=== PATIENT | female | born 1975 | race Caucasian/White ===

== ENCOUNTER 2019-05-30 01:55 | Inpatient (IN) | payer MEDICAID ==
[2019-05-30] MEDS ORDERED: DIAZEPAM INJ 10 MG/2 ML DISP.SYRIN IV ONE (03:17)
[2019-05-30] MEDS ORDERED: KETOROLAC TROMETHAMINE INJ/PF 30 MG/1 ML SDV IV ONE (03:17)
[2019-05-30] MEDS ORDERED: DEXAMETHASONE SOD PHOS INJ 10 MG/1 ML VIAL IV ONE (03:18)
--- NOTE | 2019-05-30 03:18 | ER Document Report ---
ED General - General Mode of Arrival: Medic Information source: Patient <RUDOLPHSTEPHANIESanjay Sethi - Last Filed: 05/30/19 09:09> <JORGE LUISROBERT - Last Filed: 05/30/19 15:43> - General Chief Complaint: Back Pain Stated Complaint: LOWER LEFT BACK PAIN Time Seen by Provider: 05/30/19 03:07 Notes: Patient is a 44-year-old female presenting to the emergency department chief complaint of low back pain. She is visiting from out of town and called EMS for severe pain to the low back running down the left buttock that started approximately 8 PM. Patient reports she has had back pain before but never anything like this. She states she is having spasms in very sharp pains. EMS gave her a total of 100 mcg of fentanyl which did not alleviate her pain. She denies loss of any bowel or bladder function. Reports no saddle anesthesia. (NESTOR GALDAMEZ) - Related Data Allergies/Adverse Reactions: No Known Allergies Allergy (Unverified 05/30/19 02:22) Past Medical History - General Information source: Patient - Social History Smoking Status: Never Smoker Chew tobacco use (# tins/day): No Frequency of alcohol use: None Drug Abuse: None Family History: Reviewed & Not Pertinent Patient has suicidal ideation: No Patient has homicidal ideation: No - Medical History Medical History: Negative Surgical Hx: Negative - Immunizations Immunizations up to date: Yes <NESTOR GALDAMEZ - Last Filed: 05/30/19 09:09> Review of Systems - Review of Systems Constitutional: No symptoms reported EENT: No symptoms reported Cardiovascular: No symptoms reported Respiratory: No symptoms reported Gastrointestinal: No symptoms reported Genitourinary: No symptoms reported Female Genitourinary: No symptoms reported Musculoskeletal: See HPI Skin: No symptoms reported Hematologic/Lymphatic: No symptoms reported Neurological/Psychological: No symptoms reported <NESTOR GALDAMEZ - Last Filed: 05/30/19 09:09> Physical Exam <NESTOR GALDAMEZ - Last Filed: 05/30/19 09:09> - Vital signs Vitals: Temp Pulse Resp BP Pulse Ox 99.0 F 88 18 143/93 H 100 05/30/19 01:56 05/30/19 01:56 05/30/19 01:56 05/30/19 01:56 05/30/19 01:56 - Notes Notes: PHYSICAL EXAMINATION: GENERAL: Well-appearing, well-nourished and in no moderate distress. HEAD: Atraumatic, normocephalic. EYES: Pupils equal round and reactive to light, extraocular movements intact, c onjunctiva are normal. ENT: Nares patent, oropharynx clear without exudates. Moist mucous membranes. NECK: Normal range of motion, supple without lymphadenopathy LUNGS: Breath sounds clear to auscultation bilaterally and equal. No wheezes rales or rhonchi. HEART: Regular rate and rhythm without murmurs ABDOMEN: Soft, nontender, nondistended abdomen. No guarding, no rebound. No masses appreciated. Female : No CVA tenderness Musculoskeletal: Point tenderness over the vertebral bodies in the lumbar spine, no step-off or deformity noted. Patient also has tenderness with palpation to the left lumbar paraspinous muscles. 5 out of 5 strength in both the distal and proximal upper and lower extremities bilaterally. Sensation is grossly intact throughout. NEUROLOGICAL: Cranial nerves grossly intact. Normal speech. Normal sensory, motor exams PSYCH: Normal mood, normal affect. SKIN: Warm, Dry, normal turgor, no rashes or lesions noted. (NESTOR GALDAMEZ) Course <NESTOR GALDAMEZ - Last Filed: 05/30/19 09:09> - Laboratory Result Diagrams: 05/30/19 09:30 05/30/19 09:30 <ROBERT KANG - Last Filed: 05/30/19 15:43> - Re-evaluation Re-evalutation: Patient appears to be in significant pain at time of arrival. She has no neurological deficits noted on physical exam. She was given IV Toradol, IV Decadron and IV Valium without relief of her pain. She will be sent for a CT of the L-spine. 05/30/19 09:09 Spoke with radiologist, Dr. Ochoa's. 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 Reconsulted with Dr. Kang who recommends obtaining some basic labs including a sed rate and CRP to make sure there is no infectious or inflammatory process going on. Bedside handoff was given to Robert PAINTING. He will follow-up on patient's labs and appropriately disposition patient. (NESTOR GALDAMEZ) 05/30/19 12:41 There was a delay in care trying to reach radiologist for consult on imaging preference. I was able to speak with Dr. Fontaine who recommends MRI with contrast. We will also check UA. 05/30/19 15:42 Patient is an afebrile, well-hydrated, 44-year-old female who presents with discitis/osteomyelitis at L3/L4. Vitals are acceptable without significant tachycardia, tachypnea, hypoxia. PE is otherwise unremarkable. Patient is nontoxic-appearing and is tolerating p.o. without difficulty. We will start her on vancomycin as well as cefepime. I did call for admission and spoke with Dr. Cobos who accepted patient to medical floor. (ROBERT KANG) - Vital Signs Vital signs: Temp Pulse Resp BP Pulse Ox 98.2 F 86 16 121/85 98 05/30/19 14:27 05/30/19 14:27 05/30/19 14:27 05/30/19 14:27 05/30/19 14:27 - Laboratory Laboratory results interpreted by me: 05/30/19 05/30/19 05/30/19 05:11 09:30 09:30 WBC 13.6 H Hgb 11.2 L Hct 33.8 L RDW 14.2 H Lymph % (Auto) 8.2 L [place] % (Auto) 2.5 L Absolute Neuts (auto) 12.1 H Seg Neutrophils % 88.5 H ESR 43 H Chloride 108 H Glucose 155 H AST 45 H Alkaline Phosphatase 189 H C-Reactive Protein 73.6 H Urine Protein 30 H Discharge <NESTOR GALDAMEZ - Last Filed: 05/30/19 09:09> - Discharge Admitting Provider: Papito (Hospitalist) Unit Admitted: Medical Floor <ROBERT KANG - Last Filed: 05/30/19 15:43> - Discharge Clinical Impression: Discitis of lumbar region, Osteomyelitis of vertebra of lumbar region Condition: Stable Disposition: ADMITTED INPATIENT
[2019-05-30] MEDS ORDERED: MORPHINE SULFATE 10 MG/ML INJ IV ONE ×3 (05:14→12:25)
--- NOTE | 2019-05-30 07:21 | RADIOLOGY REPORT (SQ) ---
CLINICAL HISTORY: low back pain COMPARISON: None. 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 FINDINGS: There is no acute fracture. Alignment is anatomic. There is minimal lower lumbar facet arthritis. There is moderate narrowing of most of the lumbar discs with sparing at C4-5. Vertebral body heights are preserved. Soft tissues are unremarkable. IMPRESSION: No acute fracture or subluxation.
[2019-05-30 09:38] LABS: ABSOLUTE BASOPHILS # (AUTO) 0.1 10^3/uL (0.0-0.2); ABSOLUTE LYMPHOCYTES (AUTO) 1.1 10^3/uL (0.5-4.7); ABSOLUTE MONOCYTES (AUTO) 0.3 10^3/uL (0.1-1.4); ABSOLUTE NEUT (AUTO) 12.1 10^3/uL (1.7-8.2); BASOPHILS % (AUTO) 0.7 % (0-2); EOSINOPHILS % (AUTO) 0.1 % (0-6); HEMATOCRIT 33.8 % (36.0-47.0); HEMOGLOBIN 11.2 g/dL (12.0-15.5); LYMPHOCYTES % (AUTO) 8.2 % (13-45); MEAN CORPUSCULAR HEMOGLOBIN 27.3 pg (27.0-33.4); MEAN CORPUSCULAR HGB CONC 33.2 g/dL (32.0-36.0); MEAN CORPUSCULAR VOLUME 82 fl (80-97); MONOCYTES % (AUTO) 2.5 % (3-13); PLATELET COUNT 412 10^3/uL (150-450); RED CELL DISTRIBUTION WIDTH 14.2 % (11.5-14.0); SEGMENTED NEUTROPHILS % (AUTO) 88.5 % (42-78); TOTAL CELLS COUNTED % (AUTO) 100 %; WHITE BLOOD COUNT 13.6 10^3/uL (4.0-10.5)
[2019-05-30 10:10] LABS: ALBUMIN 3.5 g/dL (3.5-5.0); ALKALINE PHOSPHATASE 189 U/L (38-126); ANION GAP 8 (5-19); ASPARTATE AMINO TRANSFERASE 45 U/L (14-36); BILIRUBIN,DIRECT 0.2 mg/dL (0.0-0.4); BILIRUBIN,TOTAL 0.3 mg/dL (0.2-1.3); BLOOD UREA NITROGEN 14 mg/dL (7-20); C-REACTIVE PROTEIN 73.6 mg/L (<10.0); CALCIUM 9.5 mg/dL (8.4-10.2); CARBON DIOXIDE 23 mmol/L (22-30); CHLORIDE 108 mmol/L (98-107); GLUCOSE 155 mg/dL (75-110); POTASSIUM 4.6 mmol/L (3.6-5.0); TOTAL PROTEIN 7.2 g/dL (6.3-8.2)
[2019-05-30 10:15] LABS: ERYTHROCYTE SEDIMENTATION RATE 43 mm/hr (0-20)
[2019-05-30 12:56] LABS: AMORPHOUS SEDIMENT,URINE TRACE /HPF; APPEARANCE,URINE CLOUDY; BILIRUBIN,URINE NEGATIVE (NEGATIVE); COLOR,URINE YELLOW; GLUCOSE, URINE NEGATIVE (NEGATIVE); KETONES,URINE NEGATIVE (NEGATIVE); PROTEIN,URINE 30 mg/dL (NEGATIVE); URINE SPECIFIC GRAVITY 1.021; UROBILINOGEN,URINE NEGATIVE mg/dL (<2.0)
[2019-05-30] MEDS ORDERED: LORAZEPAM INJ 2 MG/1 ML VIAL IV ONE (13:20)
--- NOTE | 2019-05-30 15:15 | RADIOLOGY REPORT (SQ) ---
EXAM DESCRIPTION: MRI LUMBAR SPINE COMBO COMPLETED DATE/TIME: 05/30/2019 2:16 pm REASON FOR STUDY: LBP, elevated WBC, ESR, CRP COMPARISON: CT 05/30/2019 TECHNIQUE: Sagittal and Axial imaging includes T1, T1 post gadolinium, T2, STIR and gradient echo se quences. Coronal T2/HASTE imaging. CONTRAST TYPE AND DOSE: 10 mL Dotarem. RENAL FUNCTION: Not indicated. ACR Type II contrast agent associated with few, if any, unconfounded cases of NSF LIMITATIONS: None. FINDINGS: VISUALIZED UPPER ABDOMEN: Limited evaluation. No acute or suspicious findings suggested. SEGMENTATION: No transitional anatomy. The lowest well-developed disc space is labeled L5-S1. ALIGNMENT: Slight reversal of the normal lordotic curvature is seen at the L3/4 level. VERTEBRAE: Intact. No fractures. BONE MARROW: Enhancing edema is seen involving the L3/L4 apposing endplates. Mild enhancing marrow e meghana is seen of the L5-S1 level. Marrow signal is otherwise normal. DISC SIGNAL: Extrusion results in severe right POSTERIOR ELEMENTS: Generally intact. No pars defect evident. HARDWARE: None in the spine. CORD AND CONUS: Normal in size and signal intensity. Conus at the appropriate level. SOFT TISSUES: No aortic aneurysm seen. No bulky retroperitoneal adenopathy or mass. No paraspinal mas s or fluid. L1-L2: Right foraminal zone disc bulge results an severe right neural foraminal narrowing. The centr al canal and left neural foramen remain patent. L2-L3: Right foraminal zone disc bulge results in mild right neural foraminal narrowing. The central canal and left neural foramen remain widely patent. L3-L4: Left foraminal zone disc extrusion results in severe left neural foraminal narrowing. There i s mild central canal and right neural foraminal narrowing as well. L4-L5: Broad-based posterior disc bulge results in moderate bilateral neural foraminal narrowing. L5-S1: Posterior disc bulge the effaces the ventral CSF signal and results moderate bilateral neural foraminal narrowing. LOWER THORACIC: Incompletely imaged. No stenosis seen. SACRUM: Visualized upper sacrum intact. ENHANCEMENT: No abnormal enhancement. OTHER: No other significant findings. IMPRESSION: Constellation of findings consistent with discitis/osteomyelitis at the L3/4 level. Thi s is superimposed upon multilevel spondylotic changes as detailed above. TECHNICAL DOCUMENTATION: JOB ID: [id number]- All Rights Reserved Reading location - IP/workstation name: [email or web address]
[2019-05-30] MEDS ORDERED: CEFEPIME 2 GM/D5W RTU 2 GM/50 ML RTUPB IV ONE (15:36)
[2019-05-30] MEDS ORDERED: ACETAMINOPHEN 325 MG TABLET PO PRN (16:16)
[2019-05-30] MEDS ORDERED: MAG HYDROX/AL HYDROX/SIMETH SUSP 30 ML UDCUP PO PRN (16:16)
[2019-05-30] MEDS ORDERED: ONDANSETRON HCL INJ/PF 4 MG/2 ML SDV IV PRN (16:16)
[2019-05-30] MEDS ORDERED: KETOROLAC TROMETHAMINE INJ/PF 30 MG/1 ML SDV IV PRN (16:23)
[2019-05-30 16:49] LABS: URINE AMPHETAMINES SCREEN NEGATIVE; URINE BARBITURATES SCREEN NEGATIVE; URINE BENZODIAZEPINES SCREEN NEGATIVE; URINE COCAINE SCREEN NEGATIVE; URINE MARIJUANA (THC) SCREEN NEGATIVE; URINE METHADONE SCREEN NEGATIVE; URINE PHENCYCLIDINE SCREEN NEGATIVE
[2019-05-30] MEDS: OXYCODONE HCL IR 5 MG TABLET PO PRN (16:55)
--- NOTE | 2019-05-30 16:56 | PDOC H&P ---
History of Present Illness Admission Date/PCP: 05/30/19 16:00 Patient complains of: Back pain History of Present Illness: BRENDEN SURESH is a 44 year old female with a history of migraines and anxiety, who presents to the hospital with complaints of lower back pain involving the middle and left side. Pain started yesterday and is described as a sharp pain without further radiation. Got as bad as a 5/5. Exacerbated by certain motions of her spine and relieved usually just lays steady on the left side. Denies any fever or chills. Acknowledge feeling some weakness in her left leg. Denies any saddle anesthesia, bowel or bladder incontinence, paresthesias in her lower extremities. Denies any cuts or wounds to the body. 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 Last used in November 2018. Denies IV use. Drugs: Marijuana Hx Prescription Drug Abuse: No - Advance Directive Resuscitation Status: Full Code Family History Family History: DM, Other - Colorectal cancer in her twin sister Parental Family History Reviewed: Yes Children Family History Reviewed: NA Sibling(s) Family History Reviewed.: Yes Medication/Allergy Home Medications: No Home Medications 05/30/19 Allergies/Adverse Reactions: No Known Allergies Allergy (Unverified 05/30/19 02:22) Review of Systems Constitutional: PRESENT: headache(s). ABSENT: chills, fever(s) Eyes: ABSENT: visual disturbances Nose, Mouth, and Throat: PRESENT: headache(s). ABSENT: mouth pain Cardiovascular: ABSENT: chest pain Respiratory: ABSENT: cough, dyspnea Gastrointestinal: ABSENT: abdominal pain, diarrhea, nausea, vomiting Genitourinary: ABSENT: dysuria Musculoskeletal: ABSENT: joint swelling Integumentary: ABSENT: diaphoresis Neurological: ABSENT: confusion, dizziness, numbness, paresthesias, tingling, tremor(s) Psychiatric: PRESENT: anxiety Endocrine: ABSENT: polyuria Physical Exam Vital Signs: Temp Pulse Resp BP Pulse Ox 98.2 F 86 16 121/85 98 05/30/19 14:27 05/30/19 14:27 05/30/19 14:27 05/30/19 14:27 05/30/19 14:27 Intake & Output 05/29/19 05/30/19 05/31/19 06:59 06:59 06:59 Weight 64.8 kg General appearance: PRESENT: no acute distress, cooperative Head exam: PRESENT: normocephalic Eye exam: PRESENT: EOMI Neck exam: ABSENT: JVD Respiratory exam: PRESENT: clear to auscultation basil, symmetrical, unlabored. ABSENT: crackles, rales, rhonchi, tachypnea, wheezes Cardiovascular exam: PRESENT: RRR, +S1, +S2. ABSENT: diastolic murmur, systolic murmur GI/Abdominal exam: PRESENT: normal bowel sounds, soft. ABSENT: firm, guarding, rebound, rigid, tenderness Extremities exam: ABSENT: pedal edema Musculoskeletal exam: PRESENT: full ROM, tenderness - In mid lower and left lower back. ABSENT: deformity Neurological exam: PRESENT: motor sensory deficit - Right lower extremity 5/5 strength, LLE 4-5/5 strength (very mildly weaker than right leg) Results Laboratory Results: 05/30/19 09:30 05/30/19 09:30 05/30/19 05/30/19 05/30/19 05:11 09:30 09:30 WBC 13.6 H RBC 4.10 Hgb 11.2 L Hct 33.8 L MCV 82 MCH 27.3 MCHC 33.2 RDW 14.2 H Plt Count 412 Seg Neutrophils % 88.5 H Sodium 138.8 Potassium 4.6 Chloride 108 H Carbon Dioxide 23 Anion Gap 8 BUN 14 Creatinine 0.62 Est GFR ( Amer) > 60 Glucose 155 H Calcium 9.5 Total Bilirubin 0.3 AST 45 H Alkaline Phosphatase 189 H C-Reactive Protein 73.6 H Total Protein 7.2 Albumin 3.5 Urine Color YELLOW Urine Appearance CLOUDY Urine pH 7.0 Ur Specific [place] 1.021 Urine Protein 30 H Urine Glucose (UA) NEGATIVE Urine Ketones NEGATIVE Urine Blood NEGATIVE Urine RBC (Auto) 1 Impressions: Lumbar Spine CT 05/30/19 05:13 IMPRESSION: No acute fracture or subluxation. Lumbar Spine MRI 05/30/19 12:43 IMPRESSION: Constellation of findings consistent with discitis/osteomyelitis at the L3/4 level. This is superimposed upon multilevel spondylotic changes as detailed above. Assessment and Plan - Diagnosis (1) Osteomyelitis of vertebra of lumbar region Is this a current diagnosis for this admission?: Yes Plan: -MRI confirming osteomyelitis and discitis of L3/4 vertebra endplates. Elevated ESR and CRP. -I discussed with IR to see if a bone biopsy would be possible tomorrow or today prior to starting antibiotics. However due to staffing limitations, I was informed that it will not be possible to obtain a bone biopsy till very earliest time being Sunday if even that. -As such, I will proceed with IV antibiotics with vancomycin and ceftriaxone and forego pursuing bone biopsy. Patient will need at least 6 weeks of antibiotics. -Follow-up blood cultures -s/p dexamethasone in the ER -Pain control with Tylenol, Toradol and oxycodone based on pain scale. -Bedrest -Back brace if needed (2) Discitis of lumbar region Is this a current diagnosis for this admission?: Yes Plan: Plan as above (3) Migraine headache Qualifiers: Migraine type: unspecified Status migrainosus presence: without status migrainosus Intractability: not intractable Qualified Code(s): G43.909 - Migraine, unspecified, not intractable, without status migrainosus Is this a current diagnosis for this admission?: Yes Plan: Chronic Pain control as needed - Time Time Spent with patient: 35 or more minutes
[2019-05-30] MEDS: VANCOMYCIN HCL INJ 1000 MG VIAL IV ONE ×2 (18:05→18:20)
[2019-05-30] MEDS: KETOROLAC TROMETHAMINE INJ/PF 30 MG/1 ML SDV IV PRN (18:26)
[2019-05-30] MEDS ORDERED: INFLUENZA QUAD (6MOS+) 2019-20 VAC 0.5 ML SYR IM ONE (18:29)
[2019-05-31] MEDS: KETOROLAC TROMETHAMINE INJ/PF 30 MG/1 ML SDV IV PRN ×4 (00:38→23:22)
[2019-05-31] MEDS: OXYCODONE HCL IR 5 MG TABLET PO PRN (01:38)
[2019-05-31] MEDS: VANCOMYCIN HCL 750 MG in DEXTROSE 5%-WATER 250 ML IV SCH ×3 (02:18→17:20)
[2019-05-31] MEDS: MORPHINE SULFATE 10 MG/ML INJ IV PRN ×5 (02:40→21:48)
[2019-05-31 05:01] LABS: ABSOLUTE LYMPHOCYTES (AUTO) 2.2 10^3/uL (0.5-4.7); ABSOLUTE NEUT (AUTO) 12.6 10^3/uL (1.7-8.2); BASOPHILS % (AUTO) 0.3 % (0-2); EOSINOPHILS % (AUTO) 0.2 % (0-6); LYMPHOCYTES % (AUTO) 14.1 % (13-45); MEAN CORPUSCULAR HEMOGLOBIN 27.1 pg (27.0-33.4); MEAN CORPUSCULAR HGB CONC 33.2 g/dL (32.0-36.0); MEAN CORPUSCULAR VOLUME 82 fl (80-97); MONOCYTES % (AUTO) 6.2 % (3-13); PLATELET COUNT 459 10^3/uL (150-450); RED BLOOD COUNT 3.68 10^6/uL (3.72-5.28); RED CELL DISTRIBUTION WIDTH 14.2 % (11.5-14.0); SEGMENTED NEUTROPHILS % (AUTO) 79.2 % (42-78); TOTAL CELLS COUNTED % (AUTO) 100 %; WHITE BLOOD COUNT 15.9 10^3/uL (4.0-10.5)
[2019-05-31 05:16] LABS: ANION GAP 12 (5-19); BLOOD UREA NITROGEN 21 mg/dL (7-20); CALCIUM 9.4 mg/dL (8.4-10.2); CARBON DIOXIDE 20 mmol/L (22-30); CHLORIDE 106 mmol/L (98-107); GLUCOSE 207 mg/dL (75-110); POTASSIUM 3.9 mmol/L (3.6-5.0)
[2019-05-31] MEDS: ENOXAPARIN SODIUM INJ 40 MG/0.4 ML DISP.SYRIN SUBCUT SCH (09:14)
[2019-05-31] MEDS ORDERED: CEFTRIAXONE 2 GM/D5W RTU 2 GM/50 ML RTUPB IV SCH (10:00)
[2019-05-31] MEDS ORDERED: VANCOMYCIN HCL INJ 500 MG VIAL IV SCH (10:00)
--- NOTE | 2019-05-31 11:07 | PDOC PROGRESS REPORT ---
Subjective Progress Note for:: 05/31/19 Subjective:: Patient still experiencing some back pain today. States that the Toradol helped modestly but occasionally might need something even stronger. Does not have much request today. Reason For Visit: VERTEBRAL OSTEOMYELITIS Physical Exam Vital Signs: Temp Pulse Resp BP Pulse Ox 98.1 F 83 15 132/79 H 100 05/31/19 08:00 05/31/19 08:00 05/31/19 08:00 05/31/19 08:00 05/31/19 08:00 Intake & Output 05/30/19 05/31/19 06/01/19 06:59 06:59 06:59 Intake Total 650 Balance 650 Weight 64.8 kg 64.5 kg General appearance: PRESENT: no acute distress, cooperative Neck exam: ABSENT: JVD Respiratory exam: PRESENT: clear to auscultation basil, symmetrical, unlabored. ABSENT: tachypnea, wheezes Cardiovascular exam: PRESENT: RRR, +S1, +S2. ABSENT: diastolic murmur, systolic murmur, tachycardia GI/Abdominal exam: PRESENT: normal bowel sounds. ABSENT: ascites, distended, firm, guarding, rebound, rigid, soft, tenderness Musculoskeletal exam: PRESENT: other - Tenderness in lower mid and left lower back. Worsens with left hip flexion against resistance. Neurological exam: PRESENT: alert, awake, oriented to person, oriented to place, oriented to time, oriented to situation, other - RLE 5/5 flexion at the hip 5/5 distally, LLE 4-5/5 proximally at the hip, 5/5 distally Psychiatric exam: ABSENT: agitated, anxious Results Laboratory Results: 05/31/19 04:06 05/31/19 04:06 05/30/19 05/31/19 05/31/19 05:11 04:06 04:06 WBC 15.9 H RBC 3.68 L Hgb 10.0 L Hct 30.0 L MCV 82 MCH 27.1 MCHC 33.2 RDW 14.2 H Plt Count 459 H Seg Neutrophils % 79.2 H Sodium 137.5 Potassium 3.9 Chloride 106 Carbon Dioxide 20 L Anion Gap 12 BUN 21 H Creatinine 0.66 Est GFR ( Amer) > 60 Glucose 207 H Calcium 9.4 Magnesium 2.0 Urine Color YELLOW Urine Appearance CLOUDY Urine pH 7.0 Ur Specific [place] 1.021 Urine Protein 30 H Urine Glucose (UA) NEGATIVE Urine Ketones NEGATIVE Urine Blood NEGATIVE Urine RBC (Auto) 1 05/30/19 16:10 Blood Blood Culture (PCR) - Final Streptococcus Species Impressions: Lumbar Spine CT 05/30/19 05:13 IMPRESSION: No acute fracture or subluxation. Lumbar Spine MRI 05/30/19 12:43 IMPRESSION: Constellation of findings consistent with discitis/osteomyelitis at the L3/4 level. This is superimposed upon multilevel spondylotic changes as detailed above. Assessment and Plan - Diagnosis (1) Osteomyelitis of vertebra of lumbar region Is this a current diagnosis for this admission?: Yes Plan: -MRI confirming osteomyelitis and discitis of L3/4 vertebra endplates. Elevated ESR and CRP. Secondary to hematogenous seeding. However primary source is unclear. -Bone biopsy was not possible on admission after discussion with IR until very earliest Sunday. We will forego bone biopsy at this point. -Blood cultures now positive for Streptococcus species -Continue vancomycin and ceftriaxone pending susceptibility report. Patient will need antibiotics for at least 6 weeks. -s/p dexamethasone in the ER --> likely responsible for the bump in WBC count today -Pain control with Tylenol, Toradol and morphine based on pain scale. -Bedrest -Was unable to get a back brace for patient. Use a K pad for now. (2) Discitis of lumbar region Is this a current diagnosis for this admission?: Yes Plan: Plan as above (3) Streptococcal bacteremia Is this a current diagnosis for this admission?: Yes Plan: -Repeat blood cultures ordered for tomorrow morning. -Continue antibiotics as stated problem #1 (4) Migraine headache Qualifiers: Migraine type: unspecified Status migrainosus presence: without status migrainosus Intractability: not intractable Qualified Code(s): G43.909 - Migraine, unspecified, not intractable, without status migrainosus Is this a current diagnosis for this admission?: Yes Plan: Chronic Pain control as needed - Time Time Spent with patient: Less than 15 minutes
[2019-05-31] MEDS: CEFTRIAXONE 2 GM/D5W RTU 2 GM/50 ML RTUPB IV SCH (13:07)
[2019-05-31] MEDS: CYCLOBENZAPRINE HCL 10 MG TABLET PO PRN (16:41)
[2019-05-31 17:41] LABS: VANCOMYCIN,TROUGH 14.2 ug/mL (5.0-20.0)
[2019-06-01] MEDS: CYCLOBENZAPRINE HCL 10 MG TABLET PO PRN ×3 (00:12→18:43)
[2019-06-01] MEDS: MORPHINE SULFATE 10 MG/ML INJ IV PRN ×4 (01:04→19:36)
[2019-06-01] MEDS: VANCOMYCIN HCL 750 MG in DEXTROSE 5%-WATER 250 ML IV SCH ×3 (01:05→18:01)
[2019-06-01 06:40] LABS: ABSOLUTE BASOPHILS # (AUTO) 0.1 10^3/uL (0.0-0.2); ABSOLUTE EOSINOPHILS # (AUTO) 0.1 10^3/uL (0.0-0.6); ABSOLUTE LYMPHOCYTES (AUTO) 2.7 10^3/uL (0.5-4.7); ABSOLUTE MONOCYTES (AUTO) 0.8 10^3/uL (0.1-1.4); ABSOLUTE NEUT (AUTO) 6.2 10^3/uL (1.7-8.2); BASOPHILS % (AUTO) 1.1 % (0-2); EOSINOPHILS % (AUTO) 1.2 % (0-6); HEMATOCRIT 31.4 % (36.0-47.0); HEMOGLOBIN 10.8 g/dL (12.0-15.5); LYMPHOCYTES % (AUTO) 27.3 % (13-45); MEAN CORPUSCULAR HEMOGLOBIN 27.7 pg (27.0-33.4); MEAN CORPUSCULAR HGB CONC 34.3 g/dL (32.0-36.0); MEAN CORPUSCULAR VOLUME 81 fl (80-97); MONOCYTES % (AUTO) 7.7 % (3-13); PLATELET COUNT 490 10^3/uL (150-450); RED BLOOD COUNT 3.89 10^6/uL (3.72-5.28); RED CELL DISTRIBUTION WIDTH 14.3 % (11.5-14.0); SEGMENTED NEUTROPHILS % (AUTO) 62.7 % (42-78); TOTAL CELLS COUNTED % (AUTO) 100 %; WHITE BLOOD COUNT 9.9 10^3/uL (4.0-10.5)
[2019-06-01 07:03] LABS: ANION GAP 10 (5-19); BLOOD UREA NITROGEN 20 mg/dL (7-20); CALCIUM 9.1 mg/dL (8.4-10.2); CARBON DIOXIDE 21 mmol/L (22-30); CHLORIDE 108 mmol/L (98-107); GLUCOSE 115 mg/dL (75-110); POTASSIUM 4.4 mmol/L (3.6-5.0)
[2019-06-01] MEDS: KETOROLAC TROMETHAMINE INJ/PF 30 MG/1 ML SDV IV PRN ×2 (09:20→18:43)
[2019-06-01] MEDS: ENOXAPARIN SODIUM INJ 40 MG/0.4 ML DISP.SYRIN SUBCUT SCH ×2 (09:20→10:07)
--- NOTE | 2019-06-01 10:21 | PDOC PROGRESS REPORT ---
Subjective Progress Note for:: 06/01/19 Subjective:: Clearly in pain. She is Grimicing and restless. The pain rediates to left leg. To the thigh mostly. The left leg feels week. Reason For Visit: VERTEBRAL OSTEOMYELITIS Physical Exam Vital Signs: Temp Pulse Resp BP Pulse Ox 98.0 F 80 16 134/80 H 99 06/01/19 07:35 06/01/19 07:35 06/01/19 07:35 06/01/19 07:35 06/01/19 07:35 Intake & Output 05/31/19 06/01/19 06/02/19 06:59 06:59 06:59 Intake Total 650 1778 Balance 650 1778 Weight 64.5 kg 66.5 kg General appearance: PRESENT: cooperative, mild distress - moderate distress, well-developed Head exam: PRESENT: atraumatic, normocephalic Eye exam: PRESENT: conjunctiva pale. ABSENT: scleral icterus Ear exam: PRESENT: normal external ear exam. ABSENT: bleeding, drainage Mouth exam: PRESENT: moist, tongue midline Teeth exam: PRESENT: dental caries - several teeth droken at the gums, poor dentation, other - Gingivitis and gum discoloration, Halitosis Neck exam: ABSENT: carotid bruit, JVD, lymphadenopathy Respiratory exam: PRESENT: clear to auscultation basil, symmetrical, wheezes. ABSENT: accessory muscle use, rales, rhonchi, tachypnea, unlabored Cardiovascular exam: PRESENT: RRR, +S1, +S2, systolic murmur - 1/6 GI/Abdominal exam: PRESENT: soft. ABSENT: distended, guarding, tenderness Rectal exam: PRESENT: deferred Extremities exam: ABSENT: joint swelling, pedal edema Musculoskeletal exam: PRESENT: ambulatory - poor gait secondary to pain Neurological exam: PRESENT: alert, awake, oriented to person, oriented to place, oriented to time, oriented to situation, reflexes normal - Patellar 2+ bilaterally, CN II-XII grossly intact Psychiatric exam: PRESENT: appropriate affect - grimacing affect reflects pain. ABSENT: agitated, anxious Focused psych exam: PRESENT: restlessness - Cannot seem to get in a comfortable position.. ABSENT: delusional Skin exam: PRESENT: dry, normal color, warm. ABSENT: erythema, rash Results Laboratory Results: 06/01/19 05:48 06/01/19 05:48 06/01/19 06/01/19 05:48 05:48 WBC 9.9 RBC 3.89 Hgb 10.8 L Hct 31.4 L MCV 81 MCH 27.7 MCHC 34.3 RDW 14.3 H Plt Count 490 H Seg Neutrophils % 62.7 Sodium 138.7 Potassium 4.4 Chloride 108 H Carbon Dioxide 21 L Anion Gap 10 BUN 20 Creatinine 0.60 Est GFR ( Amer) > 60 Glucose 115 H Calcium 9.1 05/30/19 16:10 Blood Blood Culture (PCR) - Final Streptococcus Species Impressions: Lumbar Spine CT 05/30/19 05:13 IMPRESSION: No acute fracture or subluxation. Lumbar Spine MRI 05/30/19 12:43 IMPRESSION: Constellation of findings consistent with discitis/osteomyelitis at the L3/4 level. This is superimposed upon multilevel spondylotic changes as detailed above. Assessment and Plan - Diagnosis (1) Discitis of lumbar region Is this a current diagnosis for this admission?: Yes Plan: 06/01/2019-identification and sensitivities are pending. Clearly it is from her bad teeth. Multiple teeth are broken off at the gumline and there are many caries. I told her that she can expect 6 weeks of antibiotics. Once the PICC line is in place we will arrange for home antibiotic therapy. (2) Osteomyelitis of vertebra of lumbar region Is this a current diagnosis for this admission?: Yes Plan: 06/01/2019-the plan is as above. I have ordered a JOSÉ to rule out any endocarditis. I will also monitor the CRP/ESR as this should normalize with pro longed antibiotic therapy. (3) Streptococcal bacteremia Is this a current diagnosis for this admission?: Yes Plan: 06/01/2019-awaiting final identification and sensitivities. As soon as they are available I will narrow the spectrum of antibiotics. The vancomycin is very irritating to her veins. (4) Neutrophilic leukocytosis Is this a current diagnosis for this admission?: Yes Plan: 06/01/2019-the white blood cell count was elevated due to the osteomyelitis/d iscitis. With antibiotics it is now normal. (5) Migraine headache Qualifiers: Migraine type: unspecified Status migrainosus presence: without status migrainosus Intractability: not intractable Qualified Code(s): G43.909 - Migraine, unspecified, not intractable, without status migrainosus Is this a current diagnosis for this admission?: Yes Plan: 06/01/2019-symptomatic management at this time. (6) Lumbar disc disease with radiculopathy Is this a current diagnosis for this admission?: Yes Plan: 06/01/2019-after reviewing the MRI report she has bulging disks at multiple levels. There is significant foraminal encroachment bilaterally. I explained that she will need to at least consult with a neurosurgeon but this will only be after her antibiotic therapy is completed. The pain is radiating to her left leg. Her patellar reflexes were normal and she can lift her left leg off the bed on command. The plantar and dorsiflexion strength is symmetric. I believe her perceived weakness in that leg is more from pain. (7) Low back pain due to displacement of intervertebral disc Is this a current diagnosis for this admission?: Yes Plan: 06/01/2019-as noted above she has bulging disks that multiple levels. This is contributing to her back pain. The discitis/osteomyelitis is only made it worse. Symptomatic management at this time. Because of the multilevel disc disease I am going to give a single dose of Decadron to see if this gives her relief. I explained to her that we have to be very careful that we do not suppress the immune system with the underlying infection. She is also on Toradol as an anti-inflammatory. (8) Primary active dental caries extending into pulp Is this a current diagnosis for this admission?: Yes Plan: 06/01/2019-the patient has several molars broken off at the gumline in the left lower jaw. There are severe caries in the right molars as well. There is swelling of the gums and some discoloration. I did not observe any purulent drainage. This is most likely the cause of her osteomyelitis/discitis. I explained to her that she will need significant work and likely have multiple teeth pulled. I will strongly urged her to consult an moving picture producer/clerical supervisor. I will defer to them but it may be best to have dental work while she is on the antibiotic therapy. - Time Time Spent with patient: 15-24 minutes Medications reviewed and adjusted accordingly: Yes Anticipated discharge: Home - Home with IV antibiotics.
[2019-06-01] MEDS ORDERED: DEXAMETHASONE SOD PHOSPHATE INJ 4 MG/1 ML VIAL IV ONE (10:30)
[2019-06-01] MEDS: LIDOCAINE 5% (700 MG) TRANSDERMAL ADH..PATCH TP SCH (11:12)
[2019-06-01] MEDS: NORMAL SALINE 1000 ML 1,000 ML IV PRN (11:12)
[2019-06-01] MEDS: CEFTRIAXONE 2 GM/D5W RTU 2 GM/50 ML RTUPB IV SCH (14:36)
[2019-06-01] MEDS: CHLORHEXIDINE GLUCONATE 0.12% ORAL RINSE 15 ML UDC MM SCH (18:01)
[2019-06-02] MEDS: ACETAMINOPHEN 325 MG TABLET PO PRN (00:12)
[2019-06-02] MEDS: KETOROLAC TROMETHAMINE INJ/PF 30 MG/1 ML SDV IV PRN ×4 (01:11→23:55)
[2019-06-02] MEDS: VANCOMYCIN HCL 750 MG in DEXTROSE 5%-WATER 250 ML IV SCH ×2 (01:11→10:07)
[2019-06-02] MEDS: MORPHINE SULFATE 10 MG/ML INJ IV PRN ×3 (02:50→18:52)
[2019-06-02 04:15] LABS: ABSOLUTE BASOPHILS # (AUTO) 0.1 10^3/uL (0.0-0.2); ABSOLUTE LYMPHOCYTES (AUTO) 2.4 10^3/uL (0.5-4.7); ABSOLUTE MONOCYTES (AUTO) 1.1 10^3/uL (0.1-1.4); ABSOLUTE NEUT (AUTO) 14.5 10^3/uL (1.7-8.2); BASOPHILS % (AUTO) 0.7 % (0-2); HEMATOCRIT 32.1 % (36.0-47.0); HEMOGLOBIN 10.8 g/dL (12.0-15.5); LYMPHOCYTES % (AUTO) 13.1 % (13-45); MEAN CORPUSCULAR HEMOGLOBIN 27.1 pg (27.0-33.4); MEAN CORPUSCULAR HGB CONC 33.6 g/dL (32.0-36.0); MEAN CORPUSCULAR VOLUME 81 fl (80-97); MONOCYTES % (AUTO) 6.2 % (3-13); PLATELET COUNT 557 10^3/uL (150-450); RED BLOOD COUNT 3.98 10^6/uL (3.72-5.28); RED CELL DISTRIBUTION WIDTH 14.3 % (11.5-14.0); TOTAL CELLS COUNTED % (AUTO) 100 %; WHITE BLOOD COUNT 18.1 10^3/uL (4.0-10.5)
[2019-06-02 04:20] LABS: INTERNATIONAL RATION (INR) 1.01; PROTHROMBIN TIME 13.3 SEC (11.4-15.4)
[2019-06-02 04:21] LABS: PARTIAL THROMBOPLASTIN TIME 28.9 SEC (23.5-35.8)
[2019-06-02 04:37] LABS: ANION GAP 10 (5-19); BLOOD UREA NITROGEN 17 mg/dL (7-20); CALCIUM 9.7 mg/dL (8.4-10.2); CARBON DIOXIDE 21 mmol/L (22-30); CHLORIDE 108 mmol/L (98-107); GLUCOSE 183 mg/dL (75-110)
[2019-06-02] MEDS: CYCLOBENZAPRINE HCL 10 MG TABLET PO PRN ×2 (07:59→17:31)
[2019-06-02] MEDS: LIDOCAINE 5% (700 MG) TRANSDERMAL ADH..PATCH TP SCH (10:03)
[2019-06-02] MEDS: CHLORHEXIDINE GLUCONATE 0.12% ORAL RINSE 15 ML UDC MM SCH ×2 (10:03→17:33)
--- NOTE | 2019-06-02 10:30 | PDOC PROGRESS REPORT ---
Subjective Progress Note for:: 06/02/19 Subjective:: Patient admits to history of IV drug use. She has not used in 2 months. Her sister and both within the last year and she has been extremely depressed. The mouth is still the most likely etiology as the bacteria identified is strep mitis. Reason For Visit: VERTEBRAL OSTEOMYELITIS Physical Exam Vital Signs: Temp Pulse Resp BP Pulse Ox 97.9 F 75 16 141/84 H 100 06/02/19 07:40 06/02/19 07:40 06/02/19 07:40 06/02/19 07:40 06/02/19 07:40 Intake & Output 06/01/19 06/02/19 06/03/19 06:59 06:59 06:59 Intake Total 1778 1160 Balance 1778 1160 Weight 66.5 kg 62.4 kg General appearance: PRESENT: no acute distress, cooperative, well-developed Head exam: PRESENT: atraumatic, normocephalic Eye exam: PRESENT: conjunctiva pink. ABSENT: scleral icterus Ear exam: PRESENT: normal external ear exam. ABSENT: bleeding, drainage Mouth exam: PRESENT: moist, tongue midline Neck exam: PRESENT: full ROM. ABSENT: carotid bruit, JVD Respiratory exam: PRESENT: clear to auscultation basil, rales, symmetrical, unlabored. ABSENT: accessory muscle use, rhonchi, tachypnea, wheezes Cardiovascular exam: PRESENT: RRR, +S1, +S2, systolic murmur - 2/6 GI/Abdominal exam: PRESENT: normal bowel sounds, soft. ABSENT: distended, tenderness Rectal exam: PRESENT: deferred Extremities exam: PRESENT: full ROM. ABSENT: joint swelling, pedal edema Musculoskeletal exam: PRESENT: full ROM, normal inspection. ABSENT: deformity Neurological exam: PRESENT: alert, awake, oriented to person, oriented to place, oriented to time, oriented to situation, CN II-XII grossly intact Psychiatric exam: PRESENT: depressed, flat affect. ABSENT: agitated, anxious Focused psych exam: ABSENT: delusional, restlessness Skin exam: PRESENT: dry, normal color, warm. ABSENT: rash Results Laboratory Results: 06/02/19 04:06 06/02/19 04:06 06/02/19 06/02/19 04:06 04:06 WBC 18.1 H RBC 3.98 Hgb 10.8 L Hct 32.1 L MCV 81 MCH 27.1 MCHC 33.6 RDW 14.3 H Plt Count 557 H Seg Neutrophils % 80.0 H Sodium 139.4 Potassium 4.0 Chloride 108 H Carbon Dioxide 21 L Anion Gap 10 BUN 17 Creatinine 0.54 Est GFR ( Amer) > 60 Glucose 183 H Calcium 9.7 05/30/19 17:00 Blood Blood Culture - Final Strep Mitis/Oralis Grp 05/30/19 16:10 Blood Blood Culture (PCR) - Final Streptococcus Species 05/30/19 16:10 Blood Blood Culture - Final Strep Mitis/Oralis Grp Impressions: Lumbar Spine CT 05/30/19 05:13 IMPRESSION: No acute fracture or subluxation. Lumbar Spine MRI 05/30/19 12:43 IMPRESSION: Constellation of findings consistent with discitis/osteomyelitis at the L3/4 level. This is superimposed upon multilevel spondylotic changes as detailed above. Assessment and Plan - Diagnosis (1) Discitis of lumbar region Is this a current diagnosis for this admission?: Yes Plan: 06/01/2019-identification and sensitivities are pending. Clearly it is from her bad teeth. Multiple teeth are broken off at the gumline and there are many caries. I told her that she can expect 6 weeks of antibiotics. Once the PICC line is in place we will arrange for home antibiotic therapy. 06/02/2019-antibiotics changed to nafcillin. 6 weeks therapy total. (2) Osteomyelitis of vertebra of lumbar region Is this a current diagnosis for this admission?: Yes Plan: 06/01/2019-the plan is as above. I have ordered a JOSÉ to rule out any endocarditis. I will also monitor the CRP/ESR as this should normalize with prolonged antibiotic therapy. 06/02/2019-JOSÉ ordered as well. Weekly laboratory studies for monitoring. (3) Streptococcal bacteremia Is this a current diagnosis for this admission?: Yes Plan: 06/01/2019-awaiting final identification and sensitivities. As soon as they are available I will narrow the spectrum of antibiotics. The vancomycin is very irritating to her veins. 06/02/2019-strep mitis identified. Sensitive to penicillin. Changed antibiotics to nafcillin. (4) Neutrophilic leukocytosis Is this a current diagnosis for this admission?: Yes Plan: 06/01/2019-the white blood cell count was elevated due to the osteomyelitis/discitis. With antibiotics it is now normal. 06/02/2019-her white blood cell count has increased to 18,000 today. This is very unexpected. I will recheck it tomorrow. In addition we are changing the antibiotics as noted above. (5) Migraine headache Qualifiers: Migraine type: unspecified Status migrainosus presence: without status migrainosus Intractability: not intractable Qualified Code(s): G43.909 - Migraine, unspecified, not intractable, without status migrainosus Is this a current diagnosis for this admission?: Yes Plan: 06/01/2019-symptomatic management at this time. (6) Lumbar disc disease with radiculopathy Is this a current diagnosis for this admission?: Yes Plan: 06/01/2019-after reviewing the MRI report she has bulging disks at multiple level s. There is significant foraminal encroachment bilaterally. I explained that she will need to at least consult with a neurosurgeon but this will only be after her antibiotic therapy is completed. The pain is radiating to her left leg. Her patellar reflexes were normal and she can lift her left leg off the bed on command. The plantar and dorsiflexion strength is symmetric. I believe her perceived weakness in that leg is more from pain. 06/02/2019-as above (7) Low back pain due to displacement of intervertebral disc Is this a current diagnosis for this admission?: Yes Plan: 06/01/2019-as noted above she has bulging disks that multiple levels. This is contributing to her back pain. The discitis/osteomyelitis is only made it worse. Symptomatic management at this time. Because of the multilevel disc disease I am going to give a single dose of Decadron to see if this gives her relief. I explained to her that we have to be very careful that we do not suppress the immune system with the underlying infection. She is also on Toradol as an anti-inflammatory. 06/02/2019-as above (8) Primary active dental caries extending into pulp Is this a current diagnosis for this admission?: Yes Plan: 06/01/2019-the patient has several molars broken off at the gumline in the left lower jaw. There are severe caries in the right molars as well. There is swe lling of the gums and some discoloration. I did not observe any purulent drainage. This is most likely the cause of her osteomyelitis/discitis. I explained to her that she will need significant work and likely have multiple teeth pulled. I will strongly urged her to consult an stamp analyst/runner out. I will defer to them but it may be best to have dental work while she is on the antibiotic therapy. 06/02/2019-I did order Peridex wash to try and decrease the oral bacterial miakyla load. (9) Moderately severe major depression Is this a current diagnosis for this admission?: Yes Plan: 06/02/2019-the patient admitted the circumstances of the last year that are causing her depression. Her and sister within the last 12 months. She realizes that drug abuse was a way to self treat. She has agreed to a trial of antidepressant therapy. Psychiatry will also be seeing the patient as well. (10) Infection due to Streptococcus mitis group Is this a current diagnosis for this admission?: Yes Plan: 06/02/2019-changed to nafcillin for the strep infection. The patient did have a PICC line placed today and weekly monitoring labs would be appropriate. - Time Time Spent with patient: 15-24 minutes Medications reviewed and adjusted accordingly: Yes Anticipated discharge: Home
[2019-06-02] MEDS: BUPROPION HCL 75 MG TABLET PO SCH ×2 (11:03→22:15)
[2019-06-02] MEDS: NAFCILLIN SODIUM 2 GM in DEXTROSE 5%-WATER 100 ML IV SCH ×3 (14:12→22:13)
[2019-06-02] MEDS: NORMAL SALINE 1000 ML 1,000 ML IV PRN (14:13)
--- NOTE | 2019-06-02 14:53 | RADIOLOGY REPORT (SQ) ---
EXAM DESCRIPTION: PICC INSERTION; FLUORO/CV PLACEMENT; U/S GUIDE FOR VASCULAR ACCESS COMPLETED DATE/TIME: 06/02/2019 1:37 pm REASON FOR STUDY: osteomyelitis; IV ABX COMPARISON: None. FLUOROSCOPY TIME: 4 seconds 1 ultrasound and 1 fluoroscopic digital image saved to PACS. TECHNIQUE: Fluoroscopic and ultrasound guided PICC placement. LIMITATIONS: None. PROCEDURE: After written consent and assessment were obtained, the patient was brought into the fluo roscopy room and placed supine on the table. Ultrasound evaluation of potential access sites were per formed. After successfully identifying a patent left basilic vein, the left arm was prepped and drape d in a sterile fashion along with the ultrasound probe. The entry site was anesthetized with 1% lidoc jules. A 21 gauge 7 cm needle was advanced through the skin and into the basilic vein under live ultra sound guidance. An ultrasound image was saved to PACS confirming access site. A .018 guide wire was then inserted through the needle and into the venous system. The needle was then removed and an 11 b lade scalpel was used to make a 1cm skin incision. A 5 fr peel-away sheath was advanced over the wir e and into the venous system. A measurement was then made using the existing wire and live fluoroscop ic guidance. The wire was then removed and trimmed. The PICC was advanced through the peel-away sheat h and into the venous system. The peel-away sheath was removed and the catheter was adhered to the pa tients arm with a stat lock. The catheter was then aspirated and flushed and a sterile bandage was pl aced over the access site. A fluoroscopic spot image was saved to PACS confirming the catheter tip w ithin the superior vena cava. IMPRESSION: SUCCESSFUL PLACEMENT OF A 5 FR DUAL LUMEN 36 CM PICC IN THE LEFT BASILIC VEIN. COMMENT: Patient medication list reviewed: Yes- Quality ID# [id number]:Eligible professional attests to doc umenting in the medical record they obtained, updated, or reviewed the patient's current medications. . Quality ID 145: Final reports for procedures using fluoroscopy that document radiation exposure mariza viviana, or exposure time and number of fluorographic images (if radiation exposure indices are not avail able) Quality ID #[id number]: The patient was prepped and draped using maximum sterile barrier technique including cap, mask, sterile gown, sterile gloves, a large sterile sheet, hand hygiene, and 2% Chlorhexidine fo r cutaneous antisepsis. When ultrasound is used, sterile ultrasound techniques are followed requiring sterile gel and sterile probes. TECHNICAL DOCUMENTATION: JOB ID: [id number] [employer]- All Rights Reserved rev-11/16 Reading location - IP/workstation name: [email or web address]
[2019-06-02] MEDS: LACTOBACILLUS ACIDOPHILUS 250 MG TAB PO SCH (17:31)
[2019-06-02] MEDS: PHARMACY COMMUNICATION ORDER MC SCH (22:14)
[2019-06-03] MEDS: NORMAL SALINE 1000 ML 1,000 ML IV PRN ×2 (01:55→15:34)
[2019-06-03] MEDS: NAFCILLIN SODIUM 2 GM in DEXTROSE 5%-WATER 100 ML IV SCH ×6 (01:55→21:19)
[2019-06-03] MEDS: MORPHINE SULFATE 10 MG/ML INJ IV PRN ×4 (03:16→21:19)
[2019-06-03] MEDS: KETOROLAC TROMETHAMINE INJ/PF 30 MG/1 ML SDV IV PRN ×3 (06:01→18:31)
[2019-06-03 07:35] LABS: ABSOLUTE BASOPHILS # (AUTO) 0.1 10^3/uL (0.0-0.2); ABSOLUTE EOSINOPHILS # (AUTO) 0.2 10^3/uL (0.0-0.6); ABSOLUTE LYMPHOCYTES (AUTO) 3.2 10^3/uL (0.5-4.7); ABSOLUTE MONOCYTES (AUTO) 0.6 10^3/uL (0.1-1.4); BASOPHILS % (AUTO) 0.7 % (0-2); EOSINOPHILS % (AUTO) 1.4 % (0-6); LYMPHOCYTES % (AUTO) 28.9 % (13-45); MEAN CORPUSCULAR HEMOGLOBIN 27.1 pg (27.0-33.4); MEAN CORPUSCULAR HGB CONC 33.3 g/dL (32.0-36.0); MEAN CORPUSCULAR VOLUME 81 fl (80-97); MONOCYTES % (AUTO) 5.8 % (3-13); PLATELET COUNT 436 10^3/uL (150-450); RED BLOOD COUNT 3.32 10^6/uL (3.72-5.28); RED CELL DISTRIBUTION WIDTH 13.9 % (11.5-14.0); SEGMENTED NEUTROPHILS % (AUTO) 63.2 % (42-78); TOTAL CELLS COUNTED % (AUTO) 100 %; WHITE BLOOD COUNT 11.1 10^3/uL (4.0-10.5)
[2019-06-03] MEDS ORDERED: NORMAL SALINE 10 ML SDV (AFTER EACH USE) IV PRN (08:00)
[2019-06-03] MEDS: LACTOBACILLUS ACIDOPHILUS 250 MG TAB PO SCH ×2 (09:18→18:09)
[2019-06-03] MEDS: BUPROPION HCL 75 MG TABLET PO SCH ×2 (09:18→21:20)
[2019-06-03] MEDS: LIDOCAINE 5% (700 MG) TRANSDERMAL ADH..PATCH TP SCH (09:19)
[2019-06-03] MEDS: CHLORHEXIDINE GLUCONATE 0.12% ORAL RINSE 15 ML UDC MM SCH ×2 (09:19→18:09)
[2019-06-03] MEDS: ENOXAPARIN SODIUM INJ 40 MG/0.4 ML DISP.SYRIN SUBCUT SCH (09:21)
[2019-06-03] MEDS: NORMAL SALINE 10 ML SDV (SCHEDULED) IV SCH ×2 (09:27→22:39)
--- NOTE | 2019-06-03 15:49 | PSYCHOLOGICAL NOTE ---
Psych Note - Psych Note Date seen by psych provider: 06/03/19 Time seen by psych provider: 13:20 Psych Note: Reason for consult: Severe Depression Patient is experiencing emotional pain related to the recent of her twin sister in August and her in December. Patient states she has not engaged in mental health services to process through her grief because I have to be strong for everyone. Patient states her daughter underwent cancer treatment and that served as a distraction from the grief. Patient verbalized that I cant do this on my own. Patient states she did not want to be viewed as week. Patient denies suicidal and homicidal ideations. Patient is not currently linked with mental health. Patient denies a family mental health history. Patient is requesting medication management and is agreeable to outpatient mental health services at discharge. Patient verbalized a desire to find my purpose. 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 Patient shared her substance abuse began when she met her . Patient stated she engaged in recent substance use as a means to cope with her grief and emotional distress. Patient reports last substance use in March. Patient verbalized a desire to live a sober lifestyle. Patient stated she moved to [place] from [place] where drugs are everywhere because Im not going to go look for it. Patient reports no current cravings and verbalized a belief that she would not engage in substance use if substances were to be provided to her. Patient is alert and oriented to person, place, time and circumstance. Mood normal with congruent affect. Patient was engaged with clinician. Patient was tearful as she described the loss of her twin sister and . Patient denies suicidal and homicidal ideation. Delusions are absent and behavior is congruent with an intact reality based presentation (i.e. organized and linear thought processes). Patient denies auditory and visual hallucinations. There is no observed behavior that suggests patient is responding to internal stimuli. Eye contact is good. Conversational speech is within normal rate, tone, and prosody. Intellectual ability appears to be within average range. Attention and concentration are good. Insight, judgment, and impulse control are good. DSM Diagnosis: Persistent Complex Bereavement Disorder Per report, Depression Medication recommendations per [facility] contracted psychiatrist Dr. Yulissa JAIME is as follows: Effexor 37.5MG, daily Wellbutrin 75MG daily for 5 days, and then discontinue Impression/Plan: Patient is cleared from acute psychiatric services. Patient does not meet IVC criteria per [place] GS 122C. Medication recommendations have been provided. Patient denies suicidal and homicidal ideations. Patient denies a uditory and visual hallucinations. There is no observed behavior that suggests patient is responding to internal stimuli. Patient is able to thoughtfully and purposefully engage in her plan of care. Patient will be linked with grief counseling while admitted to hospital. finished goods planner will be provided with an outpatient mental health resource list to provide to patient. Dr. Culp was consulted on the care and management of this patient; attending physician is in agreement with recommendations and disposition.
[2019-06-03] MEDS ORDERED: DEXTROSE 40% GEL 15 GM TUBE PO PRN ×2 (17:03)
[2019-06-03] MEDS ORDERED: GLUCAGON,HUMAN RECOMB 1 MG INJ SUBCUT PRN (17:03)
[2019-06-03] MEDS ORDERED: DEXTROSE 50%-WATER 25 GM/50 ML DISP.SYRIN IV PRN ×2 (17:03)
--- NOTE | 2019-06-03 17:03 | PDOC PROGRESS REPORT ---
Subjective Progress Note for:: 06/03/19 Subjective:: Patient experienced some improvement in pain today. Denies any chest pain currently. Has been okay ambulating to the bathroom. Reason For Visit: VERTEBRAL OSTEOMYELITIS Physical Exam Vital Signs: Temp Pulse Resp BP Pulse Ox 98.0 F 83 14 108/93 H 100 06/03/19 12:00 06/03/19 12:00 06/03/19 12:00 06/03/19 12:00 06/03/19 12:00 Intake & Output 06/02/19 06/03/19 06/04/19 06:59 06:59 06:59 Intake Total 2160 1732 1376 Balance 2160 1732 1376 Weight 62.4 kg 65.6 kg General appearance: PRESENT: no acute distress, cooperative Eye exam: PRESENT: EOMI Respiratory exam: PRESENT: clear to auscultation basil, symmetrical, unlabored. ABSENT: tachypnea, wheezes Cardiovascular exam: PRESENT: RRR, +S1, +S2. ABSENT: tachycardia GI/Abdominal exam: PRESENT: normal bowel sounds, soft. ABSENT: rebound, rigid, tenderness Musculoskeletal exam: PRESENT: ambulatory, tenderness - The left lower back Neurological exam: PRESENT: alert, awake, oriented to person, oriented to place, oriented to time Results Laboratory Results: 06/03/19 06:30 06/02/19 04:06 06/03/19 06/03/19 06:30 06:30 WBC 11.1 H RBC 3.32 L Hgb 9.0 L Hct 27.0 L MCV 81 MCH 27.1 MCHC 33.3 RDW 13.9 Plt Count 436 Seg Neutrophils % 63.2 C-Reactive Protein 11.7 H Impressions: Lumbar Spine CT 05/30/19 05:13 IMPRESSION: No acute fracture or subluxation. Lumbar Spine MRI 05/30/19 12:43 IMPRESSION: Constellation of findings consistent with discitis/osteomyelitis at the L3/4 level. This is superimposed upon multilevel spondylotic changes as detailed above. Guidance Fluoroscopy 06/02/19 00:00 IMPRESSION: SUCCESSFUL PLACEMENT OF A 5 FR DUAL LUMEN 36 CM PICC IN THE LEFT BASILIC VEIN. Interventional Vascular Procedure 06/02/19 00:00 IMPRESSION: SUCCESSFUL PLACEMENT OF A 5 FR DUAL LUMEN 36 CM PICC IN THE LEFT BASILIC VEIN. PICC Line Insertion 12/02/19 00:00 IMPRESSION: SUCCESSFUL PLACEMENT OF A 5 FR DUAL LUMEN 36 CM PICC IN THE LEFT B ASILIC VEIN. Assessment and Plan - Diagnosis (1) Osteomyelitis of vertebra of lumbar region Is this a current diagnosis for this admission?: Yes Plan: Continue with nafcillin. PICC line has been placed. Patient will need IV antibiotics for 6 weeks. JOSÉ will be done tomorrow. Pain control. We will take her off bedrest tomorrow. (2) Discitis of lumbar region Is this a current diagnosis for this admission?: Yes (3) Streptococcal bacteremia Is this a current diagnosis for this admission?: Yes Plan: Source is dental caries. Continue IV antibiotics as listed in problem #1. (4) Migraine headache Qualifiers: Migraine type: unspecified Status migrainosus presence: without status migrainosus Intractability: not intractable Qualified Code(s): G43.909 - Migraine, unspecified, not intractable, without status migrainosus Is this a current diagnosis for this admission?: Yes (5) Lumbar disc disease with radiculopathy Is this a current diagnosis for this admission?: Yes Plan: 06/01/2019-after reviewing the MRI report she has bulging disks at multiple levels. There is significant foraminal encroachment bilaterally. I explained that she will need to at least consult with a neurosurgeon but this will only be after her antibiotic therapy is completed. The pain is radiating to her left leg. Her patellar reflexes were normal and she can lift her left leg off the bed on command. The plantar and dorsiflexion strength is symmetric. I believe her perceived weakness in that leg is more from pain. 06/02/2019-as above (6) Moderately severe major depression Is this a current diagnosis for this admission?: Yes Plan: 06/02/2019-the patient admitted the circumstances of the last year that are causing her depression. Her and sister within the last 12 months. She realizes that drug abuse was a way to self treat. She has agreed to a trial of antidepressant therapy. Psychiatry will also be seeing the patient as well. 06/03/2019-awaiting psych recommendations (7) Primary active dental caries extending into pulp Is this a current diagnosis for this admission?: Yes Plan: 06/01/2019-the patient has several molars broken off at the gumline in the left lower jaw. There are severe caries in the right molars as well. There is swelling of the gums and some discoloration. I did not observe any purulent drainage. This is most likely the cause of her osteomyelitis/discitis. I explained to her that she will need significant work and likely have multiple teeth pulled. I will strongly urged her to consult an cabin cleaner/prison librarian. I will defer to them but it may be best to have dental work while she is on the antibiotic therapy. 06/02/2019-I did order Peridex wash to try and decrease the oral bacterial mikayla load. - Time Time Spent with patient: 15-24 minutes
[2019-06-03] MEDS: PHARMACY COMMUNICATION ORDER MC SCH (21:33)
[2019-06-03] MEDS: CYCLOBENZAPRINE HCL 10 MG TABLET PO PRN (23:09)
[2019-06-04] MEDS: KETOROLAC TROMETHAMINE INJ/PF 30 MG/1 ML SDV IV PRN ×2 (01:38→09:41)
[2019-06-04] MEDS: NAFCILLIN SODIUM 2 GM in DEXTROSE 5%-WATER 100 ML IV SCH ×6 (02:19→21:59)
[2019-06-04] MEDS: MORPHINE SULFATE 10 MG/ML INJ IV PRN ×4 (06:09→22:55)
[2019-06-04 06:43] LABS: ABSOLUTE BASOPHILS # (AUTO) 0.1 10^3/uL (0.0-0.2); ABSOLUTE EOSINOPHILS # (AUTO) 0.4 10^3/uL (0.0-0.6); ABSOLUTE LYMPHOCYTES (AUTO) 3.1 10^3/uL (0.5-4.7); ABSOLUTE MONOCYTES (AUTO) 0.7 10^3/uL (0.1-1.4); BASOPHILS % (AUTO) 0.8 % (0-2); EOSINOPHILS % (AUTO) 3.2 % (0-6); HEMATOCRIT 29.2 % (36.0-47.0); HEMOGLOBIN 9.9 g/dL (12.0-15.5); LYMPHOCYTES % (AUTO) 23.3 % (13-45); MEAN CORPUSCULAR HEMOGLOBIN 27.7 pg (27.0-33.4); MEAN CORPUSCULAR VOLUME 81 fl (80-97); PLATELET COUNT 501 10^3/uL (150-450); RED BLOOD COUNT 3.59 10^6/uL (3.72-5.28); RED CELL DISTRIBUTION WIDTH 14.1 % (11.5-14.0); SEGMENTED NEUTROPHILS % (AUTO) 67.7 % (42-78); TOTAL CELLS COUNTED % (AUTO) 100 %; WHITE BLOOD COUNT 13.3 10^3/uL (4.0-10.5)
[2019-06-04 07:04] LABS: BLOOD UREA NITROGEN 15 mg/dL (7-20); CALCIUM 8.9 mg/dL (8.4-10.2); CARBON DIOXIDE 26 mmol/L (22-30); GLUCOSE 87 mg/dL (75-110); POTASSIUM 4.6 mmol/L (3.6-5.0)
[2019-06-04 07:06] LABS: ANION GAP 6 (5-19); CHLORIDE 107 mmol/L (98-107)
[2019-06-04] MEDS: NORMAL SALINE 10 ML SDV (SCHEDULED) IV SCH ×2 (09:42→22:00)
[2019-06-04] MEDS: ENOXAPARIN SODIUM INJ 40 MG/0.4 ML DISP.SYRIN SUBCUT SCH (09:43)
[2019-06-04] MEDS: LIDOCAINE 5% (700 MG) TRANSDERMAL ADH..PATCH TP SCH (09:46)
[2019-06-04] MEDS: LACTOBACILLUS ACIDOPHILUS 250 MG TAB PO SCH ×2 (09:56→17:53)
[2019-06-04] MEDS: CHLORHEXIDINE GLUCONATE 0.12% ORAL RINSE 15 ML UDC MM SCH ×2 (09:56→17:53)
[2019-06-04] MEDS: VENLAFAXINE HCL 25 MG TABLET PO SCH (09:56)
[2019-06-04] MEDS: BUPROPION HCL 75 MG TABLET PO SCH (09:56)
[2019-06-04] MEDS ORDERED: FENTANYL CITRATE INJ/PF 100 MCG/2 ML AMPUL ONE (11:29)
[2019-06-04] MEDS ORDERED: DIPHENHYDRAMINE HCL 50 MG/ML VIAL ONE (11:29)
[2019-06-04] MEDS ORDERED: FLUMAZENIL INJ 0.5 MG/5 ML VIAL ONE (11:30)
[2019-06-04] MEDS ORDERED: MIDAZOLAM 2 MG/2 ML INJ ONE (11:30)
[2019-06-04] MEDS ORDERED: NALOXONE HCL INJ/PF 0.4 MG/1 ML SDV ONE (11:30)
[2019-06-04] MEDS ORDERED: LIDOCAINE 2% JELLY 5 ML TUBE ONE (11:30)
--- NOTE | 2019-06-04 13:03 | PDOC PROGRESS REPORT ---
Subjective Progress Note for:: 06/04/19 Subjective:: Patient still having back pain which gets worse when she ambulates. Stating that she may need pain medication more frequently. Otherwise denies fever or chills. On discussion of plans for IV infusion upon discharge, patient prefers to get it done here in [place] and states that she does not have any reason to go back to [place]. Reason For Visit: VERTEBRAL OSTEOMYELITIS Physical Exam Vital Signs: Temp Pulse Resp BP Pulse Ox 98.4 F 86 16 139/78 H 99 06/04/19 11:18 06/04/19 12:50 06/04/19 12:50 06/04/19 12:50 06/04/19 12:50 Intake & Output 06/03/19 06/04/19 06/05/19 06:59 06:59 06:59 Intake Total 1732 2951 Output Total 0 Balance 1732 2951 Weight 65.6 kg 64.1 kg General appearance: PRESENT: no acute distress, cooperative Teeth exam: PRESENT: dental caries Neck exam: ABSENT: JVD Respiratory exam: PRESENT: clear to auscultation basil, symmetrical, unlabored. ABSENT: tachypnea, wheezes Cardiovascular exam: PRESENT: RRR, +S1, +S2. ABSENT: diastolic murmur, systolic murmur, tachycardia GI/Abdominal exam: PRESENT: normal bowel sounds, soft. ABSENT: rebound, rigid, tenderness Musculoskeletal exam: PRESENT: ambulatory, tenderness - Tenderness and low back at mid and left side Neurological exam: PRESENT: alert, awake, oriented to person, oriented to place, oriented to time, oriented to situation Results Laboratory Results: 06/04/19 06:00 06/04/19 06:00 06/04/19 06/04/19 06:00 06:00 WBC 13.3 H RBC 3.59 L Hgb 9.9 L Hct 29.2 L MCV 81 MCH 27.7 MCHC 34.0 RDW 14.1 H Plt Count 501 H Seg Neutrophils % 67.7 Sodium 138.9 Potassium 4.6 Chloride 107 Carbon Dioxide 26 Anion Gap 6 BUN 15 Creatinine 0.63 Est GFR ( Amer) > 60 Glucose 87 Calcium 8.9 Impressions: Lumbar Spine CT 05/30/19 05:13 IMPRESSION: No acute fracture or subluxation. Lumbar Spine MRI 05/30/19 12:43 IMPRESSION: Constellation of findings consistent with discitis/osteomyelitis at the L3/4 level. This is superimposed upon multilevel spondylotic changes as detailed above. Guidance Fluoroscopy 06/02/19 00:00 IMPRESSION: SUCCESSFUL PLACEMENT OF A 5 FR DUAL LUMEN 36 CM PICC IN THE LEFT BASILIC VEIN. Interventional Vascular Procedure 06/02/19 00:00 IMPRESSION: SUCCESSFUL PLACEMENT OF A 5 FR DUAL LUMEN 36 CM PICC IN THE LEFT BASILIC VEIN. PICC Line Insertion 06/02/19 00:00 IMPRESSION: SUCCESSFUL PLACEMENT OF A 5 FR DUAL LUMEN 36 CM PICC IN THE LEFT BASILIC VEIN. Assessment and Plan - Diagnosis (1) Osteomyelitis of vertebra of lumbar region Is this a current diagnosis for this admission?: Yes Plan: Continue with nafcillin but will discharge patient on ceftriaxone given ease of daily transfusions as opposed to every 4 hours. PICC line has been placed. Patient will need IV antibiotics for 6 weeks and then 07/12/2019. JOSÉ done today shows no evidence of endocarditis Pain control (2) Discitis of lumbar region Is this a current diagnosis for this admission?: Yes Plan: As per problem #1 (3) Streptococcal bacteremia Is this a current diagnosis for this admission?: Yes Plan: Source is dental caries. Continue IV antibiotics as listed in problem #1. (4) Lumbar disc disease with radiculopathy Is this a current diagnosis for this admission?: Yes Plan: -Lumbar MRI report showing she has bulging disks as well as severe foraminal narrowing and spondylosis at multiple levels. -Patient continues to complain of of significant low back pain secondary to lumbar spine disease and osteomyelitis. I have discontinued Toradol due to continuously elevation of blood pressure with systolic as high as 170s today. -Increase morphine to 5 mg every 4 as needed breakthrough pain. Continue Tylenol as needed, Flexeril and lidocaine patches. -I will consult pain management (5) Primary active dental caries extending into pulp Is this a current diagnosis for this admission?: Yes Plan: Peridex wash to try and decrease the oral bacterial mikayla load. (6) Persistent complex bereavement disorder Is this a current diagnosis for this admission?: Yes Plan: -Evaluated by psych and diagnosed with persistent complex bereavement disorder. -Will start on venlafaxine as recommended by psychiatry. Patient will be given outpatient referral for counselor by psychiatry. - Time Time Spent with patient: 15-24 minutes
--- NOTE | 2019-06-04 17:39 | XCELERA REPORT ---
Study ID: [id number] Transesophageal Echocardiogram Report Name: BRENDEN SURESH Age: 44 yrs Gender: Female : 1975 Patient Status: [facility] Date: 06/04/2019 12:41 PM History: Bacteremia Height: 63 in Weight: 146 lb BSA: 1.7 m2 Reason For Study: Discitis/osteomyelitis/murmur Ordering Physician: CHIDI JANSEN Performed By: Gabbie Nick Interpretation Summary There is no evidence of a mass or vegetation. This does not rule out endocarditis. Left ventricular systolic function is normal. Ejection Fraction = >55%. The right ventricle is normal in size and function. There is mild mitral regurgitation. There is trace tricuspid regurgitation. There is no evidence of a mass or vegetation. This does not rule out endocarditis. Procedure A complete two-dimensional transesophageal echocardiogram was performed (2D, spectral and color flow Doppler). Informed consent for Transesophageal Echocardiogram, and use of a contrast agent as needed, was obtained prior to the procedure. The patient was brought to the Endoscopy in a fasting state. An intravenous line was placed. A topical anesthetic agent was used for oropharangeal anesthesia. A bite block was inserted. IV conscious sedation was administered using Midazolam 2 mg IV and Fentanyl 25 mcg IV. The patient's vital signs, including blood pressure, heart rate, pulse oximetry and cardiac rhythm were monitored thoughout the procedure. The transesophageal probe was passed without difficulty. The usual views were obtained; basal, mid- esophageal, transgastric and aortic views. The patient tolerated the procedure well without evidence of orophangeal or esophageal trauma. Subsequent to all the images being obtained the probe was removed with out trauma. Left Ventricle The left ventricle is normal in size. There is no thrombus. There is normal left ventricular wall thickness. Left ventricular systolic function is normal. Ejection Fraction = >55%. The left ventricular wall motion is normal. Right Ventricle The right ventricle is normal in size and function. Atria The interatrial septum is intact with no evidence for an atrial septal defect. The left atrial size is normal. No left atrial mass or thrombus visualized. Right atrial size is normal. There is a catheter/pacemaker lead seen in the right atrium. Mitral Valve The mitral valve is normal in structure and function. There is no vegetation seen on the mitral valve. There is no mitral valve stenosis. There is mild mitral regurgitation. Tricuspid Valve The tricuspid valve is normal in structure and function. There is no tricuspid valve vegetation. There is no tricuspid stenosis. There is trace tricuspid regurgitation. Aortic Valve The aortic valve is normal in structure and function. The aortic valve is trileaflet. The aortic valve opens well. There is no aortic valvular vegetation. No hemodynamically significant valvular aortic stenosis. No aortic regurgitation is present. Pulmonic Valve The pulmonic valve is not well seen, but is grossly normal. There is no vegetation on the pulmonic valve. Trace pulmonic valvular regurgitation. Arteries The aortic root is not well visualized but is probably normal size. No obvious dissection could be visualized. Pericardium There is no pericardial effusion. : CHIDI JANSEN Anil
[2019-06-04] MEDS: CYCLOBENZAPRINE HCL 10 MG TABLET PO PRN (20:08)
[2019-06-04] MEDS: PHARMACY COMMUNICATION ORDER MC SCH (22:00)
[2019-06-05] MEDS: NAFCILLIN SODIUM 2 GM in DEXTROSE 5%-WATER 100 ML IV SCH ×2 (03:28→08:49)
[2019-06-05] MEDS: MORPHINE SULFATE 10 MG/ML INJ IV PRN ×2 (05:04→10:02)
[2019-06-05] MEDS: ACETAMINOPHEN 325 MG TABLET PO PRN ×2 (07:48→13:31)
[2019-06-05 08:50] LABS: ABSOLUTE BASOPHILS # (AUTO) 0.1 10^3/uL (0.0-0.2); ABSOLUTE EOSINOPHILS # (AUTO) 0.4 10^3/uL (0.0-0.6); ABSOLUTE LYMPHOCYTES (AUTO) 2.6 10^3/uL (0.5-4.7); ABSOLUTE MONOCYTES (AUTO) 0.6 10^3/uL (0.1-1.4); ABSOLUTE NEUT (AUTO) 7.9 10^3/uL (1.7-8.2); BASOPHILS % (AUTO) 0.8 % (0-2); EOSINOPHILS % (AUTO) 3.6 % (0-6); HEMATOCRIT 31.4 % (36.0-47.0); HEMOGLOBIN 10.6 g/dL (12.0-15.5); LYMPHOCYTES % (AUTO) 22.4 % (13-45); MEAN CORPUSCULAR HEMOGLOBIN 27.1 pg (27.0-33.4); MEAN CORPUSCULAR HGB CONC 33.7 g/dL (32.0-36.0); MEAN CORPUSCULAR VOLUME 81 fl (80-97); PLATELET COUNT 520 10^3/uL (150-450); RED CELL DISTRIBUTION WIDTH 14.1 % (11.5-14.0); SEGMENTED NEUTROPHILS % (AUTO) 68.2 % (42-78); TOTAL CELLS COUNTED % (AUTO) 100 %; WHITE BLOOD COUNT 11.5 10^3/uL (4.0-10.5)
[2019-06-05] MEDS ORDERED: AMLODIPINE BESYLATE 5 MG TABLET PO SCH (10:00)
[2019-06-05] MEDS: LACTOBACILLUS ACIDOPHILUS 250 MG TAB PO SCH (10:07)
[2019-06-05] MEDS: ENOXAPARIN SODIUM INJ 40 MG/0.4 ML DISP.SYRIN SUBCUT SCH (10:07)
[2019-06-05] MEDS: CHLORHEXIDINE GLUCONATE 0.12% ORAL RINSE 15 ML UDC MM SCH (10:08)
[2019-06-05] MEDS: LIDOCAINE 5% (700 MG) TRANSDERMAL ADH..PATCH TP SCH (10:08)
[2019-06-05] MEDS: VENLAFAXINE HCL 25 MG TABLET PO SCH (10:08)
[2019-06-05] MEDS: BUPROPION HCL 75 MG TABLET PO SCH (10:08)
[2019-06-05] MEDS: NORMAL SALINE 10 ML SDV (SCHEDULED) IV SCH (10:09)
[2019-06-05] MEDS ORDERED: CEFTRIAXONE 2 GM/D5W RTU 2 GM/50 ML RTUPB IV ONE (11:00)
[2019-06-05 12:52] VITALS: BP 138/96
--- NOTE | 2019-06-05 13:53 | PDOC DISCHARGE SUMMARY ---
Impression - Admit/DC Date/PCP Admission Date/Primary Care Provider: 05/30/19 16:00 Discharge Date: 06/05/19 - Discharge Diagnosis (1) Osteomyelitis of vertebra of lumbar region Is this a current diagnosis for this admission?: Yes (2) Discitis of lumbar region Is this a current diagnosis for this admission?: Yes (3) Streptococcal bacteremia Is this a current diagnosis for this admission?: Yes (4) Lumbar disc disease with radiculopathy Is this a current diagnosis for this admission?: Yes (5) Primary active dental caries extending into pulp Is this a current diagnosis for this admission?: Yes (6) Persistent complex bereavement disorder Is this a current diagnosis for this admission?: Yes (7) Degenerative joint disease (DJD) of lumbar spine Is this a current diagnosis for this admission?: Yes - Assessment Summary: Patient was admitted after findings of lumbar MRI reviewed osteomyelitis involving L3 and L4 vertebral endplates. Patient was started on empiric antibiotic treatment with broad-spectrum IV antibiotics. Blood cultures was sent initially which later revealed Streptococcus mitis bacteremia. On further evaluation of patient, we realized the patient had multiple dental caries which were likely the source of patient's bacteremia and subsequent vertebral osteomyelitis from hematogenous seeding. Patient was continued on IV antibiotics which was later narrowed down to ceftriaxone. Patient has been receiving pain control medication as patient has had significant pain both from her vertebral osteomyelitis as well as lumbar disc disease and degenerative joint disease of the lumbar spine which were all seen on MRI. Patient has been placed on Chloraseptic mouth wash to help with the dental caries instructed to see a dentist. This was likely from smoking metamphetamines. Patient underwent a JOSÉ yesterday which showed no evidence of endocarditis. Patient has been seen by painting instructor continue to require pain medications. Patient will follow-up with Dr. Guzman in outpatient setting. Patient was also started on amlodipine 5 mg daily given elevated diastolic blood pressures during this admission. Patient has been [facility] ceftriaxone 2 g daily up until July 12, 2019 which will complete a 6 weeks regimen for treatment of osteomyelitis. Patient is to have weekly CRP and ESR levels monitored and has been set up by our finished goods planner to have this monitored by Dr. Price's office. Of note, repeat blood cultures since starting antibiotics have been negative. Patient has been discharged in stable conditions with referrals was made. - Additional Information Resuscitation Status: Full Code Discharge Diet: As Tolerated, Regular Discharge Activity: Activity As Tolerated, Balance Activity w/Rest Referrals: ZOHRA GUZMAN MD [ACTIVE STAFF] - 06/11/19 9:30 am (Please arrive at 0830 to complete paperwork) ARNOLDO PRICE MD [ACTIVE STAFF] - 06/13/19 10:15 am () Prescriptions: Venlafaxine HCl [Effexor 25 mg Tablet] 37.5 mg PO DAILY #30 tablet Cyclobenzaprine HCl [Flexeril 10 mg Tablet] 10 mg PO TIDP PRN #20 tablet PRN Reason: Lidocaine [Lidoderm 5% (700 mg) Transdermal Patch] 1 patch TP DAILY #15 adh..patch Amlodipine Besylate [Norvasc 5 mg Tablet] 5 mg PO DAILY #30 tablet Oxycodone HCl [Oxy-Ir 5 mg Tablet] 1 - 2 tab PO Q4HP PRN #12 tab PRN Reason: Chlorhexidine Gluconate [Periogard 0.12% Oral Rinse 15 ml] 15 ml MM BID #15 udc Ceftriaxone 2 gm/D5w RTU [Rocephin RTU 2 gm/D5w 50 ml Premix Bag] 2 gm IV DAILY 37 Days rtupb Acetaminophen [Tylenol 325 mg Tablet] 975 mg PO Q4HP PRN #30 tablet PRN Reason: Home Medications: Acetaminophen [Tylenol 325 mg Tablet] 975 mg PO Q4HP PRN #30 tablet 06/05/19 Amlodipine Besylate [Norvasc 5 mg Tablet] 5 mg PO DAILY #30 tablet 06/05/19 Ceftriaxone 2 gm/D5w RTU [Rocephin RTU 2 gm/D5w 50 ml Premix Bag] 2 gm IV DAILY 37 Days rtupb 06/05/19 Chlorhexidine Gluconate [Periogard 0.12% Oral Rinse 15 ml] 15 ml MM BID #15 udc 06/05/19 Cyclobenzaprine HCl [Flexeril 10 mg Tablet] 10 mg PO TIDP PRN #20 tablet 06/05/19 Lidocaine [Lidoderm 5% (700 mg) Transdermal Patch] 1 patch TP DAILY #15 adh..patch 06/05/19 Oxycodone HCl [Oxy-Ir 5 mg Tablet] 1 - 2 tab PO Q4HP PRN #12 tab 06/05/19 Venlafaxine HCl [Effexor 25 mg Tablet] 37.5 mg PO DAILY #30 tablet 06/05/19 History of Present Illiness History of Present Illness: BRENDEN SURESH is a 44 year old female with a history of migraines and anxiety, who presents to the hospital with complaints of lower back pain involving the middle and left side. Pain started yesterday and is described as a sharp pain without further radiation. Got as bad as a 5/5. Exacerbated by certain motions of her spine and relieved usually just lays steady on the left side. Denies any fever or chills. Acknowledge feeling some weakness in her left leg. Denies any saddle anesthesia, bowel or bladder incontinence, paresthesias in her lower extremities. Denies any cuts or wounds to the body. Physical Exam Vital Signs: Temp Pulse Resp BP Pulse Ox 98.5 F 87 16 138/96 H 100 06/05/19 12:48 06/05/19 12:48 06/05/19 12:48 06/05/19 12:48 06/05/19 12:48 Intake & Output 06/04/19 06/05/19 06/06/19 06:59 06:59 06:59 Intake Total 2951 836 290 Output Total 0 Balance 2951 836 290 Weight 64.1 kg 64.6 kg General appearance: PRESENT: no acute distress, cooperative Neck exam: ABSENT: JVD Respiratory exam: PRESENT: clear to auscultation basil, symmetrical, unlabored. ABSENT: tachypnea, wheezes Cardiovascular exam: PRESENT: RRR, +S1, +S2. ABSENT: diastolic murmur, systolic murmur, tachycardia GI/Abdominal exam: PRESENT: normal bowel sounds, soft. ABSENT: rebound, rigid, tenderness Musculoskeletal exam: PRESENT: tenderness - Lower back Neurological exam: PRESENT: alert, awake, oriented to person, oriented to place, oriented to time, oriented to situation Results Laboratory Results: WBC 11.5 10^3/uL (4.0-10.5) H 06/05/19 08:35 RBC 3.90 10^6/uL (3.72-5.28) 06/05/19 08:35 Hgb 10.6 g/dL (12.0-15.5) L 06/05/19 08:35 Hct 31.4 % (36.0-47.0) L 06/05/19 08:35 MCV 81 fl (80-97) 06/05/19 08:35 MCH 27.1 pg (27.0-33.4) 06/05/19 08:35 MCHC 33.7 g/dL (32.0-36.0) 06/05/19 08:35 RDW 14.1 % (11.5-14.0) H 06/05/19 08:35 Plt Count 520 10^3/uL (150-450) H 06/05/19 08:35 Lymph % (Auto) 22.4 % (13-45) 06/05/19 08:35 Dickson % (Auto) 5.0 % (3-13) 06/05/19 08:35 Eos % (Auto) 3.6 % (0-6) 06/05/19 08:35 Baso % (Auto) 0.8 % (0-2) 06/05/19 08:35 Absolute Neuts (auto) 7.9 10^3/uL (1.7-8.2) 06/05/19 08:35 Absolute Lymphs (auto) 2.6 10^3/uL (0.5-4.7) 06/05/19 08:35 Absolute Monos (auto) 0.6 10^3/uL (0.1-1.4) 06/05/19 08:35 Absolute Eos (auto) 0.4 10^3/uL (0.0-0.6) 06/05/19 08:35 Absolute Basos (auto) 0.1 10^3/uL (0.0-0.2) 06/05/19 08:35 Seg Neutrophils % 68.2 % (42-78) 06/05/19 08:35 ESR 43 mm/hr (0-20) H 05/30/19 09:30 PT 13.3 SEC (11.4-15.4) 06/02/19 04:06 INR 1.01 06/02/19 04:06 APTT 28.9 SEC (23.5-35.8) 06/02/19 04:06 Sodium 138.9 mmol/L (137-145) 06/04/19 06:00 Potassium 4.6 mmol/L (3.6-5.0) 06/04/19 06:00 Chloride 107 mmol/L (98-107) 06/04/19 06:00 Carbon Dioxide 26 mmol/L (22-30) 06/04/19 06:00 Anion Gap 6 (5-19) 06/04/19 06:00 BUN 15 mg/dL (7-20) 06/04/19 06:00 Creatinine 0.63 mg/dL (0.52-1.25) 06/04/19 06:00 Est GFR ( Amer) > 60 (>60) 06/04/19 06:00 Est GFR (MDRD) Non-Af > 60 (>60) 06/04/19 06:00 Glucose 87 mg/dL (75-110) 06/04/19 06:00 Calcium 8.9 mg/dL (8.4-10.2) 06/04/19 06:00 Magnesium 2.0 mg/dL (1.6-2.3) 05/31/19 04:06 Total Bilirubin 0.3 mg/dL (0.2-1.3) 05/30/19 09:30 Direct Bilirubin 0.2 mg/dL (0.0-0.4) 05/30/19 09:30 Neonat Total Bilirubin Not Reportable 05/30/19 09:30 Neonat Direct Bilirubin Not Reportable 05/30/19 09:30 Neonat Indirect Bili Not Reportable 05/30/19 09:30 AST 45 U/L (14-36) H 05/30/19 09:30 ALT 43 U/L (<35) 05/30/19 09:30 Alkaline Phosphatase 189 U/L (38-126) H 05/30/19 09:30 C-Reactive Protein 11.7 mg/L (<10.0) H 06/03/19 06:30 Total Protein 7.2 g/dL (6.3-8.2) 05/30/19 09:30 Albumin 3.5 g/dL (3.5-5.0) 05/30/19 09:30 Urine Color YELLOW 05/30/19 05:11 Urine Appearance CLOUDY 05/30/19 05:11 Urine pH 7.0 (5.0-9.0) 05/30/19 05:11 Ur Specific [place] 1.021 05/30/19 05:11 Urine Protein 30 mg/dL (NEGATIVE) H 05/30/19 05:11 Urine Glucose (UA) NEGATIVE mg/dL (NEGATIVE) 05/30/19 05:11 Urine Ketones NEGATIVE mg/dL (NEGATIVE) 05/30/19 05:11 Urine Blood NEGATIVE (NEGATIVE) 05/30/19 05:11 Urine Nitrite (Reflex) NEGATIVE (NEGATIVE) 05/30/19 05:11 Urine Bilirubin NEGATIVE (NEGATIVE) 05/30/19 05:11 Urine Urobilinogen NEGATIVE mg/dL (<2.0) 05/30/19 05:11 Leukocyte Esterase Rfl NEGATIVE (NEGATIVE) 05/30/19 05:11 Urine RBC (Auto) 1 /HPF 05/30/19 05:11 Urine Bacteria (Auto) TRACE /HPF 05/30/19 05:11 Squamous Epi Cells Auto 1 /HPF 05/30/19 05:11 Amorphous Sediment Auto TRACE /HPF 05/30/19 05:11 Urine Mucus (Auto) RARE /LPF 05/30/19 05:11 Urine Ascorbic Acid NEGATIVE (NEGATIVE) 05/30/19 05:11 Time Trough Drawn 1705 05/31/19 17:05 Vancomycin Trough 14.2 ug/mL (5.0-20.0) 05/31/19 17:05 Urine Opiates Screen NEGATIVE 05/30/19 05:11 Urine Methadone Screen NEGATIVE 05/30/19 05:11 Ur Barbiturates Screen NEGATIVE 05/30/19 05:11 Ur Phencyclidine Scrn NEGATIVE 05/30/19 05:11 Ur Amphetamines Screen NEGATIVE 05/30/19 05:11 U Benzodiazepines Scrn NEGATIVE 05/30/19 05:11 Urine Cocaine Screen NEGATIVE 05/30/19 05:11 U Marijuana (THC) Screen NEGATIVE 05/30/19 05:11 Impressions: Lumbar Spine CT 05/30/19 05:13 IMPRESSION: No acute fracture or subluxation. Lumbar Spine MRI 05/30/19 12:43 IMPRESSION: Constellation of findings consistent with discitis/osteomyelitis at the L3/4 level. This is superimposed upon multilevel spondylotic changes as detailed above. Guidance Fluoroscopy 06/02/19 00:00 IMPRESSION: SUCCESSFUL PLACEMENT OF A 5 FR DUAL LUMEN 36 CM PICC IN THE LEFT BASILIC VEIN. Interventional Vascular Procedure 06/02/19 00:00 IMPRESSION: SUCCESSFUL PLACEMENT OF A 5 FR DUAL LUMEN 36 CM PICC IN THE LEFT BASILIC VEIN. PICC Line Insertion 06/02/19 00:00 IMPRESSION: SUCCESSFUL PLACEMENT OF A 5 FR DUAL LUMEN 36 CM PICC IN THE LEFT BASILIC VEIN. Plan Time Spent: Greater than 30 Minutes Stroke Is this a Stroke Patient?: No Acute Heart Failure - Is this a Heart Failure Patient?: No
== END 2019-06-05 13:47 | disposition home or self-care (01) | DRG 540 ==
LOC: ER 01:55 → EH 16:00 → 5 17:57
PROVIDERS: ADMIT Internal Medicine; ATTEND Internal Medicine
PROC: 02HV33Z Insertion of Infusion Device into Superior Vena Cava, Percutaneous Approach (ICD-10-PCS; principal; 2019-06-02)
PROC: B5181ZA Fluoroscopy of Superior Vena Cava using Low Osmolar Contrast, Guidance (ICD-10-PCS; 2019-06-02)
PROC: B548ZZA Ultrasonography of Superior Vena Cava, Guidance (ICD-10-PCS; 2019-06-02)
PROC: 3E02340 Introduction of Influenza Vaccine into Muscle, Percutaneous Approach (ICD-10-PCS; 2019-06-05)
DX: M46.26 Osteomyelitis of vertebra, lumbar region (principal); R78.81 Bacteremia; F32.2 Major depressive disorder, single episode, severe without psychotic features; B95.4 Other streptococcus as the cause of diseases classified elsewhere; K02.53 Dental caries on pit and fissure surface penetrating into pulp; M46.46 Discitis, unspecified, lumbar region; M47.26 Other spondylosis with radiculopathy, lumbar region; F41.9 Anxiety disorder, unspecified; G43.909 Migraine, unspecified, not intractable, without status migrainosus; D72.828 Other elevated white blood cell count; Z63.4 Disappearance and death of family member; Z23 Encounter for immunization
CPT/HCPCS: 36415; 36569; 72131; 72158; 76937; 77001; 80048; 80053; 80202; 80307; 81001; 83735; 85025; 85610; 85652; 85730; 86140; 87040; 87077; 87150; 87186; 90686; 93312; 93325; 96374; 96375; 96376; 99285; A9576; J0692; J0696; J1100; J1200; J1642; J1650; J1885; J2060; J2250; J2270; J2310; J2405; J3010; J3360; J3370; J3490; J7030; J7060; S0032

== ENCOUNTER 2019-06-06 10:06 | Emergency (ER) | payer MEDICAID ==
--- NOTE | 2019-06-06 10:46 | ER Document Report ---
ED Medical Screen (RME) - General Chief Complaint: Dizziness Stated Complaint: DIZZINESS, BACK PAIN Time Seen by Provider: 06/06/19 10:40 Mode of Arrival: Wheelchair Information source: Patient Notes: 44-year-old female presented to ED for complaint of low back pain weakness and dizziness. She states she was seen at the emergency room on and was admitted with a diagnosis of osteomyelitis discitis. She states she was discharged from the hospital yesterday was to come back to get a antibiotic to her PICC line today at noon. She states she went up to do some errands this mor choco and got so sore and tired and weak that she came back to the emergency room. She states she probably should not of been doing the errands. She denies smoking drinking or use of any drugs. She is visiting here from [place]. She is staying by herself while visiting. She states she is having a lot of nausea. Lungs are clear to auscultation respirations are regular nonlabored. Patient is able to move her lower extremities but does appear to be in some discomfort. Both of herself to the emergency room. I have greeted and performed a rapid initial assessment of this patient. A comprehensive ED assessment and evaluation of the patient, analysis of test results and completion of medical decision making process will be conducted by an additional ED providers. TRAVEL OUTSIDE OF THE [place] IN LAST 30 DAYS: No - Related Data Allergies/Adverse Reactions: No Known Allergies Allergy (Unverified 05/30/19 02:22) Past Medical History - Past Medical History Cardiac Medical History: Denies: Hx Congestive Heart Failure, Hx Coronary Artery Disease Neurological Medical History: Reports: Hx Migraine. Denies: Hx Seizures Endocrine Medical History: Denies: Hx Diabetes Mellitus Type 1, Hx Diabetes Mellitus Type 2 Malignancy Medical History: Denies: Hx Colorectal Cancer Psychiatric Medical History: Reports: Hx Depression Past Surgical History: Reports: Hx Tubal Ligation. Denies: Hx Hysterectomy - Immunizations Immunizations up to date: Yes Physical Exam - Vital signs Vitals: Temp Pulse Resp BP Pulse Ox 97.7 F 90 20 147/99 H 100 06/06/19 10:19 06/06/19 10:19 06/06/19 10:19 06/06/19 10:19 06/06/19 10:19 Course - Vital Signs Vital signs: Temp Pulse Resp BP Pulse Ox 97.7 F 90 20 147/99 H 100 06/06/19 10:19 06/06/19 10:19 06/06/19 10:19 06/06/19 10:19 06/06/19 10:19
[2019-06-06] MEDS ORDERED: ACETAMINOPHEN 325 MG TABLET PO ONE (10:47)
[2019-06-06 11:23] LABS: AMORPHOUS SEDIMENT,URINE 1+ /HPF; APPEARANCE,URINE CLOUDY; BILIRUBIN,URINE NEGATIVE (NEGATIVE); COLOR,URINE YELLOW; GLUCOSE, URINE NEGATIVE (NEGATIVE); KETONES,URINE NEGATIVE (NEGATIVE); PROTEIN,URINE NEGATIVE (NEGATIVE); URINE SPECIFIC GRAVITY 1.013; UROBILINOGEN,URINE NEGATIVE mg/dL (<2.0)
[2019-06-06 11:35] LABS: ALBUMIN 4.1 g/dL (3.5-5.0); ALKALINE PHOSPHATASE 107 U/L (38-126); ANION GAP 12 (5-19); ASPARTATE AMINO TRANSFERASE 16 U/L (14-36); BILIRUBIN,DIRECT 0.3 mg/dL (0.0-0.4); BILIRUBIN,TOTAL 0.4 mg/dL (0.2-1.3); BLOOD UREA NITROGEN 16 mg/dL (7-20); CALCIUM 10.6 mg/dL (8.4-10.2); CARBON DIOXIDE 23 mmol/L (22-30); CHLORIDE 106 mmol/L (98-107); GLUCOSE 101 mg/dL (75-110); POTASSIUM 4.2 mmol/L (3.6-5.0)
--- NOTE | 2019-06-06 11:43 | RADIOLOGY REPORT (SQ) ---
EXAM DESCRIPTION: L SPINE WHOLE COMPLETED DATE/TIME: 06/06/2019 11:28 am REASON FOR STUDY: back pain COMPARISON: None. NUMBER OF VIEWS: Five views including obliques. TECHNIQUE: AP, lateral, oblique, and sacral radiographic images acquired of the lumbar spine. LIMITATIONS: None. FINDINGS: MINERALIZATION: Normal. SEGMENTATION: Normal. No transitional anatomy. ALIGNMENT: Normal. VERTEBRAE: Limbus vertebra at L3. Mild superior endplate irregularity. Mild loss of height on the l eft lateral aspect of the L3 vertebra. DISCS: Disc spaces are narrowed throughout the lumbar spine sparing L4-5. POSTERIOR ELEMENTS: Pedicles and facets are intact. No pars defect or posterior arch defects. HARDWARE: None in the spine. PARASPINAL SOFT TISSUES: Normal. PELVIS: Intact as visualized. No fractures or worrisome bone lesions. SI joints intact. OTHER: No other significant finding. IMPRESSION: 1. Limbus vertebra at L3. 2. Mild left lateral compression changes at L3 that do not appear to be acute. 3. Multilevel degenerative disc disease. TECHNICAL DOCUMENTATION: JOB ID: [id number] [employer]- All Rights Reserved Reading location - IP/workstation name: [email or web address]
[2019-06-06 13:23] LABS: ABSOLUTE BASOPHILS # (AUTO) 0.1 10^3/uL (0.0-0.2); ABSOLUTE EOSINOPHILS # (AUTO) 0.1 10^3/uL (0.0-0.6); ABSOLUTE LYMPHOCYTES (AUTO) 1.9 10^3/uL (0.5-4.7); ABSOLUTE MONOCYTES (AUTO) 0.5 10^3/uL (0.1-1.4); ABSOLUTE NEUT (AUTO) 10.1 10^3/uL (1.7-8.2); BASOPHILS % (AUTO) 0.5 % (0-2); EOSINOPHILS % (AUTO) 0.8 % (0-6); HEMATOCRIT 36.1 % (36.0-47.0); HEMOGLOBIN 12.4 g/dL (12.0-15.5); LYMPHOCYTES % (AUTO) 15.2 % (13-45); MEAN CORPUSCULAR HEMOGLOBIN 27.4 pg (27.0-33.4); MEAN CORPUSCULAR HGB CONC 34.3 g/dL (32.0-36.0); MEAN CORPUSCULAR VOLUME 80 fl (80-97); PLATELET COUNT 597 10^3/uL (150-450); RED BLOOD COUNT 4.53 10^6/uL (3.72-5.28); RED CELL DISTRIBUTION WIDTH 14.4 % (11.5-14.0); SEGMENTED NEUTROPHILS % (AUTO) 79.5 % (42-78); TOTAL CELLS COUNTED % (AUTO) 100 %; WHITE BLOOD COUNT 12.6 10^3/uL (4.0-10.5)
[2019-06-06] MEDS ORDERED: ONDANSETRON HCL INJ/PF 4 MG/2 ML SDV IV ONE (14:30)
[2019-06-06] MEDS ORDERED: NORMAL SALINE 1000 ML 1,000 ML IV ONE (14:30)
[2019-06-06] MEDS ORDERED: MECLIZINE HCL 25 MG TABLET PO ONE (14:30)
[2019-06-06] MEDS ORDERED: OXYCODONE HCL IR 5 MG TABLET PO ONE (14:31)
[2019-06-06] MEDS ORDERED: CEFTRIAXONE 2 GM/D5W RTU 2 GM/50 ML RTUPB IV ONE (14:35)
[2019-06-06] MEDS ORDERED: NORMAL SALINE INJ/PF 0.9% 10 ML SDV IV PRN (14:36)
--- NOTE | 2019-06-06 14:39 | ER Document Report ---
ED General - General Chief Complaint: Dizziness Stated Complaint: DIZZINESS, BACK PAIN Time Seen by Provider: 06/06/19 10:40 Mode of Arrival: Wheelchair TRAVEL OUTSIDE OF THE [place] IN LAST 30 DAYS: No - HPI Notes: Patient is a 44-year-old female who was admitted about a week ago for osteomyelitis involving the L3 and L4 vertebral endplates. Patient was discharged yesterday. Patient was given IV antibiotics throughout her stay and she is now scheduled for daily antibiotics with Rocephin and has a PICC line in place. She had an unremarkable JOSÉ the other day as well. She does have outpatient medications ordered for pain, but she has not picked them up yet. Patient states that she was doing some errands today when she started feeling some nausea and dizziness. Patient states that she does continue to have back pain and believes that the pain is attributing to it. She is otherwise able to eat and drink. She is urinating normally and having normal bowel movements. She has no other concerns or complaints at this time. Denies drug allergies. Denies any headache, fever, neck pain, changes in vision/speech/mentation/hearing, URI, sore throat, chest pain, palpitations, syncope, cough, shortness of breath, wheeze, dyspnea, abdominal pain, vomiting/diarrhea, urinary retention, dysuria, hematuria, loss of control of bowel or bladder, numbness/tingling, saddle anesthesia, muscle paralysis, or rash. - Related Data Allergies/Adverse Reactions: No Known Allergies Allergy (Unverified 05/30/19 02:22) Home Medications: IV ABX Past Medical History - General Information source: Patient - Social History Smoking Status: Never Smoker Family History: DM, Other - Colorectal cancer in her twin sister Patient has suicidal ideation: No Patient has homicidal ideation: No - Past Medical History Cardiac Medical History: Denies: Hx Congestive Heart Failure, Hx Coronary Artery Disease Neurological Medical History: Reports: Hx Migraine. Denies: Hx Seizures Endocrine Medical History: Denies: Hx Diabetes Mellitus Type 1, Hx Diabetes Mellitus Type 2 Malignancy Medical History: Denies: Hx Colorectal Cancer Psychiatric Medical History: Reports: Hx Depression Past Surgical History: Reports: Hx Tubal Ligation. Denies: Hx Hysterectomy - Immunizations Immunizations up to date: Yes Review of Systems - Review of Systems -: Yes All other systems reviewed and negative Physical Exam - Vital signs Vitals: Temp Pulse Resp BP Pulse Ox 97.7 F 90 20 147/99 H 100 06/06/19 10:19 06/06/19 10:19 06/06/19 10:19 06/06/19 10:19 06/06/19 10:19 - Notes Notes: PHYSICAL EXAMINATION: GENERAL: Well-appearing, well-nourished and in no acute distress. A&Ox4. Answers questions appropriately. HEAD: Atraumatic, normocephalic. Non-tender. EYES: Pupils equal round and reactive to light, extraocular movements intact, sclera anicteric, conjunctiva are normal. No nystagmus. ENT: Nares patent and without discharge. oropharynx clear without exudates. No tonsilar hypertrophy or erythema. Moist mucous membranes. NECK: Normal range of motion, supple without lymphadenopathy. No rigidity/meningismus. No midline tenderness. LUNGS: Breath sounds clear to auscultation bilaterally and equal. No wheezes rales or rhonchi. HEART: Regular rate and rhythm without murmurs, rubs, gallops. ABDOMEN: Soft, nontender, nondistended abdomen. No guarding, no rebound. Normal bowel sounds present. No CVA tenderness bilaterally. Musculoskeletal: Ext b/l: FROM to passive/active. Strength 5+/5. No deficits noted. No bony tenderness of extremities. Extremities: No cyanosis, clubbing, or edema b/l. Peripheral pulses 2+. Capillary refill less than 2 seconds. NEUROLOGICAL: NIH 0. GCS 15. Cranial nerves grossly intact. Normal speech, normal gait. Normal sensory, motor exams. Reflexes 2+ b/l. MICHAEL's negative. Pronator drift negative. Heel/daugherty, finger/nose wnl. PSYCH: Normal mood, normal affect. SKIN: Warm, Dry, normal turgor, no rashes or lesions noted. Course - Re-evaluation Re-evalutation: 06/06/19 14:41 We will give fluids and meds. She is scheduled for her 2g rocephin IV so we will provide that to here while she is here today. 06/06/19 15:48 Patient is an afebrile, well-hydrated, 44-year-old female who presents with na usea and dizziness in the setting of her back pain which is suspect to be benign otherwise. Vitals are acceptable without significant tachycardia, tachypnea, or hypoxia. PE is otherwise unremarkable. Patient is nontoxic-appearing and is tolerating p.o. without difficulty. There is no other obvious focal neurological deficits. NIH 0, GCS 15, cranial nerves grossly intact. Labs and imaging unremarkable. Patient has received medicines as well as fluids. She is currently getting her Rocephin as scheduled daily. No further work-up warranted at this time. Patient is feeling much better after the fluids and meds. Low suspicion for any sepsis, meningitis, severe dehydration, respiratory c ompromise, cauda equina, acute intracranial pathology, or other systemic emergent condition at this time. Pt is aware that condition can change from initial presentation and she needs to monitor symptoms closely and seek medical attention with any acute changes. Continue medications and instructions as directed upon discharge yesterday. Recheck with your PCM in the next few days. Return to the ED with any other worsening/concerning symptoms. Patient is in agreement. - Vital Signs Vital signs: Temp Pulse Resp BP Pulse Ox 97.7 F 90 20 147/99 H 100 06/06/19 10:42 06/06/19 10:19 06/06/19 10:42 06/06/19 10:19 06/06/19 10:42 - Laboratory Result Diagrams: 06/06/19 13:00 06/06/19 10:55 Laboratory results interpreted by me: 06/06/19 06/06/19 10:55 13:00 WBC 12.6 H RDW 14.4 H Plt Count 597 H Absolute Neuts (auto) 10.1 H Seg Neutrophils % 79.5 H Calcium 10.6 H Discharge - Discharge Clinical Impression: Nausea, Dizziness Condition: Stable Disposition: HOME, SELF-CARE Instructions: Dizziness ([facility]), Antinausea Medication ([facility]) Additional Instructions: Rest, Ice/cool compress Tylenol/ibuprofen as needed Moist heat and massage may help Continue medical management as directed when you were discharged from the hospital. F/u with your PCP in 2-3 days for a recheck Consider consult(s) with Neurology for ongoing/worsening symptoms Return to the ED with any worsening symptoms and/or development of fever, headache, changes in behavior/mentation/vision/speech, chest pain, palpitations, syncope, shortness of breath, trouble breathing, abdominal pain, n/v/d, blood in stool/urine, loss of control of bowel/bladder, urinary retention, muscle weakness/paralysis, saddle anesthesia, numbness/tingling, or other worsening symptoms that are concerning to you. Forms: Elevated Blood Pressure Referrals: ARNOLDO PRICE MD [ACTIVE STAFF] - 06/09/19
[2019-06-06] MEDS ORDERED: ONDANSETRON ODT 4 MG TAB (6 TAB/ER DISP) PO PRN (15:50)
[2019-06-06 17:20] VITALS: BP 153/97
== END 2019-06-06 17:41 | disposition home or self-care (01) ==
LOC: ER 10:06
DX: R42 Dizziness and giddiness (principal); R11.0 Nausea; M54.9 Dorsalgia, unspecified; Z98.51 Tubal ligation status
CPT/HCPCS: 99284; 96361; 96375; 96365; 36415; 85025; 80053; 81001; 72110; J3490; J2405; J7030; J1642; J0696